=== PATIENT | female | born 1955 | race African-American/Black ===

== ENCOUNTER 2016-11-27 18:49 | Inpatient (IN) | payer OTHER ==
--- NOTE | 2016-11-27 19:13 | PDOC ---
History of Present Illness - General History Source: Patient Exam Limitations: Other - History of Present Illness Initial Comments: 11/27/16 20:05 The patient is a 61 year old female, with a significant past medical history of CVA(left-sided), asthma, cervical cancer, colon cancer(colostomy secondary to perforated viscus. no colostomy bag for 2 days), sigmoid volvulus, hypertension , hyperlipidemia, hepatitis C, bipolar disorder, depression, and seizures, who presents to the emergency department complaining of difficulty moving her left extremities for 3 days. The patient reports she has not been feeling herself since the onset of her symptoms. She states her memory has decreased over the past 3 days and her left side has been feeling a little off. The patient patient was unable to answer additional questions. The patients history is limited due to current clinical condition. Allergies: haloperidol, haloperidol lactate, penicillins(rash), fish derived( rash) Past Surgical History: Colostomy Social History: Current smoker(5 cigarettes per day). Cocaine and heroine use. Denies alcohol use. PCP: Dr. Hall <Gisele Rain - Last Filed: 11/28/16 00:56> - General History Source: Patient <Micky Argueta - Last Filed: 11/28/16 04:06> - General Stated Complaint: AMS Time Seen by Provider: 11/27/16 19:11 Past History <Gisele Rain - Last Filed: 11/28/16 00:56> - Past Medical History Asthma: Yes Cancer: Yes (h/o cervical cancer? reports tx with cone bx; h/o colon cancer - colostomy) CVA: Yes Diabetes: Yes GI Disorders: Yes (Sigmoid Volvulus, colostomy secondary to perforated viscus) Disorders: Yes HTN: Yes Hypercholesterolemia: Yes Liver Disease: Yes (HEP C) Psychiatric Problems: Yes (Diagnosed with Bipolar and depression in past.) Seizures: Yes - Surgical History Abdominal Surgery: Yes (COLOSTOMY) - Immunization History Immunization Up to Date: Yes - Psycho/Social/Smoking Cessation Hx Anxiety: No Suicidal Ideation: No Smoking Status: Yes Smoking History: Current some day smoker Have you smoked in the past 12 months: Yes Number of Cigarettes Smoked Daily: 5 Cigars Per Day: 0 'Breaking Loose' booklet given: 11/10/16 Hx Alcohol Use: No Drug/Substance Use Hx: Yes Substance Use Type: Cocaine, Heroin Hx Substance Use Treatment: Yes ((+) multiple rehabs, including a TC, in past) <Micky Argueta - Last Filed: 11/28/16 04:06> - Past Medical History Allergies/Adverse Reactions: Allergies Allergy/AdvReac Type Severity Reaction Status Date / Time haloperidol [From Haldol] Allergy Mild Verified 11/27/16 19:19 haloperidol lactate Allergy Mild Verified 11/27/16 19:19 [From Haldol] Penicillins Allergy Mild Rash Verified 11/27/16 19:19 fish derived Allergy Unknown Rash Verified 11/27/16 19:19 Home Medications: Ambulatory Orders Cyanocobalamin [Vitamin B12 -] 1,000 mcg PO DAILY 07/10/16 Cyclobenzaprine HCl [Flexeril -] 10 mg PO BID 07/10/16 Latanoprost 0.005% Eye Drops [Xalatan 0.005% Eye Drops -] 1 drop HS 07/10/16 Cholecalciferol (Vitamin D3) [Vitamin D3 -] 1,000 unit PO DAILY #30 tab Multivitamin [Poly-Vitamin] 1 each PO DAILY #30 tab.chew 08/07/16 Emtricitabine/Tenofov Alafenam [Descovy 200-25 mg Tablet] 1 each PO DAILY #30 tablet 08/14/16 Raltegravir [Isentress] 400 mg PO BID #60 tab 08/14/16 Chlorthalidone [Hygroton -] 25 mg PO DAILY #30 tablet 10/16/16 Hydralazine HCl [Apresoline -] 50 mg PO BID 10/16/16 Loratadine [Claritin -] 10 mg PO DAILY PRN #30 tablet 10/16/16 Pravastatin Sodium 10 mg PO HS 10/16/16 Sodium Chloride [Saline Nasal [place]] 1 - 2 sprays NS PRN #1 spray 10/16/16 Calcium Carbonate/Vitamin D3 [Calcium 500-Vit D3 200 Tablet] 1 each PO BID #60 tablet 10/23/16 Carbamazepine [Tegretol -] 200 mg PO BID #60 tablet 10/23/16 Vitamin B Complex 1 each PO DAILY #30 tablet 10/23/16 Clindamycin [Cleocin -] 300 mg PO TID #21 capsule 11/11/16 Quetiapine Fumarate [Seroquel -] 25 mg PO TID PRN #90 tablet 11/20/16 Valsartan [Diovan] 160 mg PO BID #60 tablet 11/20/16 Unobtainable 11/28/16 Review of Systems - Review of Systems Able to Perform ROS?: No Comments:: 11/27/16 20:05 Patient's history is limited due to current clinical condition. <Gisele Rain - Last Filed: 11/28/16 00:56> *Physical Exam - Vital Signs Last Vital Signs Temp Pulse Resp BP Pulse Ox 97.5 F L 106 H 20 157/118 97 11/27/16 19:16 11/27/16 19:16 11/27/16 19:16 11/27/16 19:16 11/27/16 19:16 - Physical Exam Comments: 11/27/16 20:13 GENERAL: Well developed, well nourished. Awake and alert. No acute distress. HEENT: Normocephalic, atraumatic. PERRLA, EOMI. No conjunctival pallor. Sclera are non- icteric. Moist mucous membranes. Oropharynx is clear. NECK: Supple. Full ROM. No JVD. Carotid pulses 2+ and symmetric, without bruits. No thyromegaly. No lymphadenopathy. CARDIOVASCULAR: Regular rate and rhythm. No murmurs, rubs, or gallops. Distal pulses are 2+ and symmetric. PULMONARY: No evidence of respiratory distress. Lungs clear to auscultation bilaterally. No wheezing, rales or rhonchi. ABDOMINAL: Soft. Non-tender. Non-distended. No rebound or guarding. No organomegaly. Normoactive bowel sounds. MUSCULOSKELETAL Normal range of motion at all joints. No bony deformities or tenderness. No CVA tenderness. EXTREMITIES: No cyanosis. No clubbing. No edema. No calf tenderness. SKIN: Warm and dry. Normal capillary refill. No rashes. No jaundice. NEUROLOGICAL: Alert, awake, appropriate. Cranial nerves 2-12 intact. No deficits to light touch and temperature in face, upper extremities and lower extremities. No motor deficits in the in face, upper extremities and lower extremities. Normoreflexic in the upper and lower extremities. Normal speech. Toes are down- going bilaterally. Gait is normal without ataxia. Bilateral motor strength 5/5. PSYCHIATRIC: Cooperative. Good eye contact. Appropriate mood and affect. <Gisele Rain - Last Filed: 11/28/16 00:56> Heart Score/ECG Review - ECG Impressions Comment:: 11/28/16 00:49 Vent. Rate: 57 bpm IMPRESSION: Sinus bradycardia. ST & T wave abnormality, consider lateral ischemia. <Gisele Rain - Last Filed: 11/28/16 00:56> ED Treatment Course - LABORATORY CBC & Chemistry Diagram: 11/27/16 23:20 11/27/16 23:20 - RADIOLOGY Radiograph Interpretation: 11/28/16 00:56 EXAM: CXR INTERPRETED BY: Dr. Shen REVIEWED BY: Dr. Argueta IMPRESSION: No significant interval change or acute lung disease is present. EXAM: Head CT INTERPRETED BY: Dr. Shen REVIEWED BY: Dr. Argueta IMPRESSION: Interval focal lucency in the right cerebellum as well as likely at the right parietal occipital junction suggestive of infarcts, of indeterminate age. Correlate clinically, MRI of the brain or a follow-up CT scan is needed for further evaluation. <Gisele Rain - Last Filed: 11/28/16 00:56> - LABORATORY CBC & Chemistry Diagram: 11/27/16 23:20 11/27/16 23:20 <Micky Argueta - Last Filed: 11/28/16 04:06> Medical Decision Making - Medical Decision Making 11/28/16 04:06 Dr. Argueta: The scribe's documentation has been prepared under my direction and personally reviewed by me in its entirery. I confirm that the note above accurately reflects all work, treatment, procedures, and medical decision making performed by me. <Micky Argueta - Last Filed: 11/28/16 04:06> *DC/Admit/Observation/Transfer - Attestations Scribe Attestion: 11/27/16 20:13 Documentation prepared by Gisele Rain, acting as medical technologist microbiology for Micky Argueta DO. <Gisele Rain - Last Filed: 11/28/16 00:56> - Discharge Dispostion Admit: Yes <Micky Argueta - Last Filed: 11/28/16 04:06> Diagnosis at time of Disposition: Altered awareness, transient, General weakness, Failure to thrive in adult - Referrals
--- NOTE | 2016-11-27 19:57 | PDOC ---
History of Present Illness - General Chief Complaint: CVA/TIA Stated Complaint: AMS Time Seen by Provider: 11/27/16 19:11 History Source: Patient tPA Exclusion checklist 3-4.5h - Time Elapsed Date last known well: 11/24/16 Time last known well: 01:00 Elaspsed time: 4 Day(s) and 3 Hour(s) and 7 Minutes - Thrombolytic Therapy Candidate Is patient eligible for thrombolytic therapy: No - Exclusion Criteria 3-4.5 hr SBP greater than 185 or DBP greater than 110mmHg despite tx: No Recent IC/spinal surgery,head trauma or stroke<3mos.: No Hx IC hemorrhage, IC neoplasm, AV malformation or aneurysm: No Active internal bleeding: No Blding diathesis(low plt ct, inc PTT,INR>1.7 or use of NOAC): No CT demonstrates multilobar infarct(>1/3 cerebral hemiphere): No Arterial puncture at noncompressible site in previous 7 days: No Blood glucose concentration less than 50mg/dL (2.7mmol/L): No - Relative Exclusion Criteria 3-4.5 hr Life expectancy <1 yr or severe co-morbid illness: No : No Patient/family refused: No Rapid improvement: No Stroke severity too mild: No Recent acute MT (w/in previous 3 months): No Seizure at onset with postictal residual neuro impairments: No Major surgery or serious trauma w/in previous 14 days: No Recent GI or hemorrhage (w/in previous 21 days): No - Add'l Relative Exclusion 3-4.5 hr Age > 80: No Hx of both diabetes AND prior ischemic stroke: No Taking an oral anticoagulant regardless of INR: No NIHSS >25: No - Ineligibility reason(s) Reasons No tPA given: Outside of window - delayed arrival NIH Stroke Scale - Last Known Well Date/Time & Onset Date Last Known Well: 11/24/16 Time Last Known Well: 19:54 - Initial Evaluation Level of consciousness: Alert Ask patient the month and their age: Answers both correctly Ask patient to open & close eyes; make fist and let go: Obeys both correctly Best gaze (horizontal eye movement): Normal Visual field testing: No visual field loss Facial paresis (Show teeth/raise eyebrows/close eyes tight): Normal symmetrical movement Motor Function: Left Arm: Normal Motor Function: Right Arm: Normal (extends arm 90 (or 45) degrees for 10 seconds without drift Motor Function: Left Leg: Drift Motor Function: Right Leg: Normal (extends leg 30 degrees for 5 seconds without drift) Limb Ataxia: Present in one limb Sensory(Use pinprick test arms,legs,trunk,face/side to side): Normal Best language (Describe picture, name items, read sentences): No Aphasia Dysarthria (read several words): Mild to moderate slurring of words Extinction and Inattention: No abnormality - Total Score NIH Stroke Scale Score: 3 Past History - Past Medical History Allergies/Adverse Reactions: Allergies Allergy/AdvReac Type Severity Reaction Status Date / Time haloperidol [From Haldol] Allergy Mild Verified 11/27/16 19:19 haloperidol lactate Allergy Mild Verified 11/27/16 19:19 [From Haldol] Penicillins Allergy Mild Rash Verified 11/27/16 19:19 fish derived Allergy Unknown Rash Verified 11/27/16 19:19 Home Medications: Ambulatory Orders Cyanocobalamin [Vitamin B12 -] 1,000 mcg PO DAILY 07/10/16 Cyclobenzaprine HCl [Flexeril -] 10 mg PO BID 07/10/16 Latanoprost 0.005% Eye Drops [Xalatan 0.005% Eye Drops -] 1 drop HS 07/10/16 Cholecalciferol (Vitamin D3) [Vitamin D3 -] 1,000 unit PO DAILY #30 tab Multivitamin [Poly-Vitamin] 1 each PO DAILY #30 tab.chew 08/07/16 Emtricitabine/Tenofov Alafenam [Descovy 200-25 mg Tablet] 1 each PO DAILY #30 tablet 08/14/16 Raltegravir [Isentress] 400 mg PO BID #60 tab 08/14/16 Chlorthalidone [Hygroton -] 25 mg PO DAILY #30 tablet 10/16/16 Hydralazine HCl [Apresoline -] 50 mg PO BID 10/16/16 Loratadine [Claritin -] 10 mg PO DAILY PRN #30 tablet 10/16/16 Pravastatin Sodium 10 mg PO HS 10/16/16 Sodium Chloride [Saline Nasal [place]] 1 - 2 sprays NS PRN #1 spray 10/16/16 Calcium Carbonate/Vitamin D3 [Calcium 500-Vit D3 200 Tablet] 1 each PO BID #60 tablet 10/23/16 Carbamazepine [Tegretol -] 200 mg PO BID #60 tablet 10/23/16 Vitamin B Complex 1 each PO DAILY #30 tablet 10/23/16 Clindamycin [Cleocin -] 300 mg PO TID #21 capsule 11/11/16 Quetiapine Fumarate [Seroquel -] 25 mg PO TID PRN #90 tablet 11/20/16 Valsartan [Diovan] 160 mg PO BID #60 tablet 11/20/16 Unobtainable 11/28/16 Asthma: Yes Cancer: Yes (h/o cervical cancer? reports tx with cone bx; h/o colon cancer - colostomy) CVA: Yes Diabetes: Yes GI Disorders: Yes (Sigmoid Volvulus, colostomy secondary to perforated viscus) Disorders: Yes HTN: Yes Hypercholesterolemia: Yes Liver Disease: Yes (HEP C) Psychiatric Problems: Yes (Diagnosed with Bipolar and depression in past.) Seizures: Yes - Surgical History Abdominal Surgery: Yes (COLOSTOMY) - Immunization History Immunization Up to Date: Yes - Psycho/Social/Smoking Cessation Hx Anxiety: No Suicidal Ideation: No Smoking Status: Yes Smoking History: Current some day smoker Have you smoked in the past 12 months: Yes Number of Cigarettes Smoked Daily: 5 Cigars Per Day: 0 Information on smoking cessation initiated: No 'Breaking Loose' booklet given: 11/10/16 Hx Alcohol Use: No Drug/Substance Use Hx: Yes Substance Use Type: Cocaine, Heroin Hx Substance Use Treatment: Yes ((+) multiple rehabs, including a TC, in past) *Physical Exam - Vital Signs Last Vital Signs Temp Pulse Resp BP Pulse Ox 97.5 F L 106 H 20 157/118 97 11/27/16 19:16 11/27/16 19:16 11/27/16 19:16 11/27/16 19:16 11/27/16 19:16 ED Treatment Course - LABORATORY CBC & Chemistry Diagram: 11/27/16 23:20 11/27/16 23:20 *DC/Admit/Observation/Transfer Diagnosis at time of Disposition: Altered awareness, transient, General weakness, Failure to thrive in adult - Discharge Dispostion Condition at time of disposition: Stable Admit: Yes - Referrals - Patient Instructions - Post Discharge Activity
[2016-11-27 23:30] LABS: MCHC 34.3 g/dl (32.0-36.0); MEAN CELL VOLUME 96.1 fl (80-96); PLATELET COUNT 335 K/MM3 (134-434); RDW 13.2 % (11.6-15.6)
[2016-11-27 23:44] LABS: INR 1.04 (0.82-1.09); PROTHROMBIN TIME (PATIENT) 11.4 SEC (9.98-11.88)
[2016-11-27 23:54] LABS: ALBUMIN 3.3 g/dl (3.4-5.0); ANION GAP 8 (8-16); BILIRUBIN,TOTAL 0.3 mg/dL (0.2-1.0); CALCIUM 9.4 mg/dL (8.5-10.1); CO2 28 mmol/L (21-32); CREATININE 0.9 mg/dL (0.55-1.02); GLUCOSE,RANDOM 88 mg/dL (74-106); MAGNESIUM 2.2 mg/dL (1.8-2.4); SGOT/AST 32 U/L (15-37); SGPT/ALT 25 U/L (12-78); TOT PROT 7.3 g/dl (6.4-8.2)
[2016-11-27 23:55] LABS: ALK PHOS 50 U/L (45-117)
[2016-11-27 23:59] LABS: TROPONIN I < 0.02 ng/ml (0.00-0.05)
--- NOTE | 2016-11-28 02:49 | MSN ---
Admitting History and Physical - Primary Care Physician PCP: Dr. Hall - Admission Chief Complaint: Altered mental status, Weakness x3 days History of Present Illness: Pt is a 61 yo F with a PMHx of HIV, colon CA, cervical CA, sigmoid volvulus s/p colostomy 2/2 perforated viscus, CVA, seizure disorder, HTN, HLD, DM, and bipolar disorder, who was BIBA from [facility] with altered mental status and generalized weakness for 3 days. She says she has not felt herself the past couple days. She reports difficulty moving her L sided extremities. Denies fevers, chills, CP, SOB, nausea, vomiting, abdominal pain, or change in vision. Admits to weakness and inability to void. Pt was straight cathed in order to obtain a urine sample. 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) Psych: Yes: Bipolar Endocrine: Yes: Diabetes Mellitus - Past Surgical History Past Surgical History: Yes: Colostomy Additional Past Surgical History: Cone Bx - Smoking History Smoking history: Former smoker Have you smoked in the past 12 months: Yes Aproximately how many cigarettes per day: 10 - Alcohol/Substance Use Hx Alcohol Use: No History of Substance Use: reports: Cocaine, Heroin (IVDU) - Social History Usual Living Arrangement: Yes: Assisted Living ADL: Support Services Home Medications - Allergies Allergies/Adverse Reactions: Allergies Allergy/AdvReac Type Severity Reaction Status Date / Time haloperidol [From Haldol] Allergy Mild Verified 11/27/16 19:19 haloperidol lactate Allergy Mild Verified 11/27/16 19:19 [From Haldol] Penicillins Allergy Mild Rash Verified 11/27/16 19:19 fish derived Allergy Unknown Rash Verified 11/27/16 19:19 - Home Medications Home Medications: Ambulatory Orders Cyanocobalamin [Vitamin B12 -] 1,000 mcg PO DAILY 07/10/16 Cyclobenzaprine HCl [Flexeril -] 10 mg PO BID 07/10/16 Latanoprost 0.005% Eye Drops [Xalatan 0.005% Eye Drops -] 1 drop HS 07/10/16 Cholecalciferol (Vitamin D3) [Vitamin D3 -] 1,000 unit PO DAILY #30 tab Multivitamin [Poly-Vitamin] 1 each PO DAILY #30 tab.chew 08/07/16 Emtricitabine/Tenofov Alafenam [Descovy 200-25 mg Tablet] 1 each PO DAILY #30 tablet 08/14/16 Raltegravir [Isentress] 400 mg PO BID #60 tab 08/14/16 Chlorthalidone [Hygroton -] 25 mg PO DAILY #30 tablet 10/16/16 Hydralazine HCl [Apresoline -] 50 mg PO BID 10/16/16 Loratadine [Claritin -] 10 mg PO DAILY PRN #30 tablet 10/16/16 Pravastatin Sodium 10 mg PO HS 10/16/16 Sodium Chloride [Saline Nasal [place]] 1 - 2 sprays NS PRN #1 spray 10/16/16 Calcium Carbonate/Vitamin D3 [Calcium 500-Vit D3 200 Tablet] 1 each PO BID #60 tablet 10/23/16 Carbamazepine [Tegretol -] 200 mg PO BID #60 tablet 10/23/16 Vitamin B Complex 1 each PO DAILY #30 tablet 10/23/16 Clindamycin [Cleocin -] 300 mg PO TID #21 capsule 11/11/16 Quetiapine Fumarate [Seroquel -] 25 mg PO TID PRN #90 tablet 11/20/16 Valsartan [Diovan] 160 mg PO BID #60 tablet 11/20/16 Unobtainable 11/28/16 Family Disease History - Family Disease History Family History: Unremarkable Review of Systems - Review of Systems Constitutional: reports: Weakness. denies: Chills, Fever Eyes: reports: No Symptoms Neck: reports: No Symptoms Cardiovascular: reports: No Symptoms Respiratory: reports: No Symptoms Gastrointestinal: reports: No Symptoms Genitourinary: reports: Incontinence (Unable to void) Breasts: reports: No Symptoms Reported Musculoskeletal: reports: Muscle Weakness Integumentary: reports: Lesions (Desquamation and onychomycosis of L big toe) Neurological: reports: Change in LOC Endocrine: reports: No Symptoms Hematology/Lymphatic: reports: No Symptoms Psychiatric: reports: No Symptoms Physical Examination Vital Signs: Vital Signs Temperature 97.5 F L 11/27/16 19:16 Pulse Rate 106 H 11/27/16 19:16 Respiratory Rate 20 11/27/16 19:16 Blood Pressure 157/118 11/27/16 19:16 O2 Sat by Pulse Oximetry (%) 97 11/27/16 19:16 Constitutional: Yes: No Distress, Calm, Thin Eyes: Yes: WNL, Conjunctiva Clear, EOM Intact, PERRL. No: Sclera Icterus HENT: Yes: WNL, Atraumatic, Normocephalic, Other (No top teeth, few bottom teeth ). No: Thrush, Tonsillar Exudate Neck: Yes: WNL, Supple, Trachea Midline. No: Lymphadenopathy Cardiovascular: Yes: WNL, Regular Rate and Rhythm, S1, S2. No: JVD, Murmur Respiratory: Yes: WNL, Regular, CTA Bilaterally, Diminished. No: Accessory Muscle Use, Rales, Rhonchi, SOB, Tachypnea, Wheezes Gastrointestinal: Yes: Normal Bowel Sounds, Tenderness, Other (Colostomy bag L side of abdomen present, no erythema/drainage around site, no output in bag). No: Hernia, Palpable Mass, Pulsatile Mass, Vomiting Renal/: Yes: Anuria, Incontinence (Unable to void) Musculoskeletal: Yes: Muscle Weakness Extremities: Yes: Other (IV in L foot) Edema: No Integumentary: Yes: WNL Wound/Incision: Yes: Clean/Dry (Colostomy site) Neurological: Yes: Alert, Oriented, Cran Nerves II-XII Intact, Lethargy, Weakness, Other (Mild dysarthria) ...Motor Strength: WNL Psychiatric: Yes: WNL, Alert, Oriented Labs: Laboratory Results - last 24 hr 11/27/16 11/27/16 11/27/16 23:20 23:20 23:20 WBC 6.0 RBC 4.14 Hgb 13.7 Hct 39.8 MCV 96.1 H MCHC 34.3 RDW 13.2 Plt Count 335 D MPV 7.0 L Neutrophils % 17.0 L D Lymphocytes % 72.0 H D Monocytes % 6.0 Eosinophils % 2.0 Basophils % 2.0 Band Neutrophils 1.0 D INR 1.04 Sodium 143 Potassium 3.8 Chloride 107 Carbon Dioxide 28 Anion Gap 8 BUN 24 H D Creatinine 0.9 Creat Clearance w eGFR > 60 Random Glucose 88 Calcium 9.4 Magnesium 2.2 Total Bilirubin 0.3 AST 32 ALT 25 Alkaline Phosphatase 50 Creatine Kinase Troponin I Total Protein 7.3 Albumin 3.3 L Urine Color Urine Appearance Urine pH Ur Specific [place] Urine Protein Urine Glucose (UA) Urine Ketones Urine Blood Urine Nitrite Urine Bilirubin Urine Urobilinogen Ur Leukocyte Esterase Opiates Screen Methadone Screen Barbiturate Screen Phencyclidine Screen Ur Amphetamines Screen MDMA (Ecstasy) Screen Benzodiazepines Screen Cocaine Screen U Marijuana (THC) Screen 11/27/16 11/28/16 11/28/16 23:20 02:40 02:40 WBC RBC Hgb Hct MCV MCHC RDW Plt Count MPV Neutrophils % Lymphocytes % Monocytes % Eosinophils % Basophils % Band Neutrophils INR Sodium Potassium Chloride Carbon Dioxide Anion Gap BUN Creatinine Creat Clearance w eGFR Random Glucose Calcium Magnesium Total Bilirubin AST ALT Alkaline Phosphatase Creatine Kinase 106 Troponin I < 0.02 Total Protein Albumin Urine Color Yellow Urine Appearance Clear Urine pH 7.0 Ur Specific [place] 1.025 Urine Protein Negative Urine Glucose (UA) Negative Urine Ketones Negative Urine Blood Negative Urine Nitrite Negative Urine Bilirubin Negative Urine Urobilinogen Negative Ur Leukocyte Esterase Negative Opiates Screen Negative Methadone Screen Negative Barbiturate Screen Negative Phencyclidine Screen Negative Ur Amphetamines Screen Negative MDMA (Ecstasy) Screen Negative Benzodiazepines Screen Negative Cocaine Screen Negative U Marijuana (THC) Screen Negative Imaging - Results Chest X-ray: Report Reviewed, Image Reviewed (No acute pathology) Cat Scan: Report Reviewed, Image Reviewed (CT Head: focal lucency of R cerebellum and R parietal/occipital jxn representing age indeterminate infarcts) EKG: Report Reviewed (Sinus bradycardia @57bpm with ST/T wave abnormalities, possible lateral ischemia), Image Reviewed Problem List - Problems (1) Altered awareness, transient (2) Failure to thrive in adult (3) General weakness (4) DVT prophylaxis (5) Asymptomatic HIV infection (6) Colostomy in place (7) Essential hypertension (8) DM w/o complication type II (9) Seizure disorder Assessment/Plan Pt is a 61 yo F with an extensive PMHx presenting to the ED from an assisted living facility with altered mental status and generalized weakness for 3 days. Pt is being admitted to med-surg for further observation and management. 1. Altered mental status with generalized weakness -CT head: notable for focal lucency in R cerebellum and R parietal lobe, age indeterminate infarct, no acute pathology -CXR: no acute pathology -EKG: Sinus bradycardia with ST segment/T wave abnormalities -Troponins negative x1 -UA -Urine toxicology screen -Physical therapy consult 2. HIV -Continue HAART -Raltegravir 400mg PO BID -Emtricitabine/Tenofov Alafenam 200/25mg PO daily -CD4 count -Viral load 3. HTN -Valsartan 160mg PO BID -Hydralazine 50mg PO BID -Chlorthalidone 25mg PO daily 4. DM -BGM 5. HLD -Pravastatin 10mg PO HS 6. Seizure disorder -Carbamazepine 200mg PO BID 7. FEN -Start NS @75mls/hr -CMP in AM with Mg, Phos -Continue home vitamins -PO diet -Dietary consult -Speech pathology consult 8. DVT ppx -SCDs -Heparin 5000U SQ BID 9. Dispo -Admit to med-surg -Endorse to Dr. Lucho Pacheco, MS3
[2016-11-28] MEDS: SODIUM CHLORIDE 1,000 ML IV SCH (02:50)
[2016-11-28] MEDS ORDERED: QUEtiapine FUMARATE 25 MG TABLET (FP) PO PRN (02:54)
[2016-11-28] MEDS ORDERED: LORATADINE 10 MG TABLET PO PRN (02:54)
[2016-11-28 02:56] LABS: URINE APPEARANCE CLEAR; URINE BILIRUBIN NEGATIVE (NEGATIVE); URINE BLOOD NEGATIVE (NEGATIVE); URINE COLOR YELLOW; URINE GLUCOSE (UA) NEGATIVE (NEGATIVE); URINE KETONE NEGATIVE (NEGATIVE); URINE LEUK ESTERASE NEGATIVE (NEGATIVE); URINE NITRITE NEGATIVE (NEGATIVE); URINE PROTEIN NEGATIVE (NEGATIVE); URINE UROBILINOGEN NEGATIVE E.U./dl (0.2-1.0)
[2016-11-28 02:58] LABS: URINE MARIJUANA THC NEGATIVE ng/ml (CUTOFF=50)
--- NOTE | 2016-11-28 03:47 | HP ---
<Lyssa Jacob - Last Filed: 11/28/16 04:33> CHIEF COMPLAINT: Weakness PCP: Dr. Hall HISTORY OF PRESENT ILLNESS: The patient is a 61 yo F with PMHx of CVA with L sided residual weakness and seizures who presents to the ED from [facility] complaining of weakness to her L side for the past 3 days. The patient states she hasn't felt like herself and reports her memory and ability to move her L extremities has decreased over the past 3 days. The patient was sent in for further evaluation of AMS. She denies chest pain, headache or dizziness. She denies fever, chills, nausea, vomit, diarrhea or constipation. She denies dysuria, frequency, urgency or hematuria. PMHx: asthma, cervical cancer, colon cancer(colostomy secondary to perforated viscus. no colostomy bag for 2 days), sigmoid volvulus, hypertension, hyperlipidemia, hepatitis C, bipolar disorder, depression, and seizures, HIV ( last T4 count is 593) Recent Travel: None reported PAST MEDICAL HISTORY: See above PAST SURGICAL HISTORY:. Colostomy Social History: Smoking: Reports 5 cigg/daily Alcohol: Non reported Drugs: IV drug user (heroin and cocaine) Family History: Noncontributory Allergies haloperidol [From Haldol] Allergy (Mild, Verified 11/27/16 19:19) as per pt "ask my nurse" haloperidol lactate [From Haldol] Allergy (Mild, Verified 11/27/16 19:19) as per pt "ask my nurse" Penicillins Allergy (Mild, Verified 11/27/16 19:19) Rash fish derived Allergy (Unknown, Verified 11/27/16 19:19) Rash HOME MEDICATIONS: Home Medications Medication Instructions Recorded Cyanocobalamin [Vitamin B12 -] 1,000 mcg PO DAILY 07/10/16 Cyclobenzaprine HCl [Flexeril -] 10 mg PO BID 07/10/16 Latanoprost 0.005% Eye Drops 1 drop HS 07/10/16 [Xalatan 0.005% Eye Drops -] Cholecalciferol (Vitamin D3) 1,000 unit PO DAILY #30 tab 08/07/16 [Vitamin D3 -] Multivitamin [Poly-Vitamin] 1 each PO DAILY #30 tab.chew 08/07/16 Emtricitabine/Tenofov Alafenam 1 each PO DAILY #30 tablet 08/14/16 [Descovy 200-25 mg Tablet] Raltegravir [Isentress] 400 mg PO BID #60 tab 08/14/16 Chlorthalidone [Hygroton -] 25 mg PO DAILY #30 tablet 10/16/16 Hydralazine HCl [Apresoline -] 50 mg PO BID 10/16/16 Loratadine [Claritin -] 10 mg PO DAILY PRN #30 tablet 10/16/16 Pravastatin Sodium 10 mg PO HS 10/16/16 Sodium Chloride [Saline Nasal 1 - 2 sprays NS PRN #1 spray 10/16/16 [place]] Calcium Carbonate/Vitamin D3 1 each PO BID #60 tablet 10/23/16 [Calcium 500-Vit D3 200 Tablet] Carbamazepine [Tegretol -] 200 mg PO BID #60 tablet 10/23/16 Vitamin B Complex 1 each PO DAILY #30 tablet 10/23/16 Clindamycin [Cleocin -] 300 mg PO TID #21 capsule 11/11/16 Quetiapine Fumarate [Seroquel -] 25 mg PO TID PRN #90 tablet 11/20/16 Valsartan [Diovan] 160 mg PO BID #60 tablet 11/20/16 Unobtainable 11/28/16 REVIEW OF SYSTEMS CONSTITUTIONAL: Absent: fever, chills, diaphoresis, generalized weakness, malaise, loss of appetite, weight change HEENT: Absent: rhinorrhea, nasal congestion, throat pain, throat swelling, difficulty swallowing, mouth swelling, ear pain, eye pain, visual changes CARDIOVASCULAR: Absent: chest pain, syncope, palpitations, irregular heart rate, lightheadedness , peripheral edema RESPIRATORY: Absent: cough, shortness of breath, dyspnea with exertion, orthopnea, wheezing, stridor, hemoptysis GASTROINTESTINAL: Absent: abdominal pain, abdominal distension, nausea, vomiting, diarrhea, constipation, melena, hematochezia GENITOURINARY: Absent: dysuria, frequency, urgency, hesitancy, hematuria, flank pain, genital pain MUSCULOSKELETAL: + muscle weakness. Absent: myalgia, arthralgia, joint swelling, back pain, neck pain SKIN: Absent: rash, itching, pallor HEMATOLOGIC/IMMUNOLOGIC: Absent: easy bleeding, easy bruising, lymphadenopathy, frequent infections ENDOCRINE: Absent: unexplained weight gain, unexplained weight loss, heat intolerance, cold intolerance NEUROLOGIC: + weakness. Absent: headache, focal weakness or paresthesias, dizziness, unsteady gait, seizure, mental status changes, bladder or bowel incontinence PSYCHIATRIC: Absent: anxiety, depression, suicidal or homicidal ideation, hallucinations. PHYSICAL EXAMINATION Vital Signs - 24 hr 11/28/16 03:26 Pulse Rate [ 68 Left Radial] Respiratory 19 Rate Blood Pressure 146/93 [Right Arm] O2 Sat by Pulse 98 Oximetry (%) GENERAL: Awake, alert, and fully oriented, in no acute distress. HEAD: Normal with no signs of trauma. EYES: Pupils equal, round and reactive to light, extraocular movements intact, sclera anicteric, conjunctiva clear. No lid lag. EARS, NOSE, THROAT: Ears normal, nares patent, oropharynx clear without exudates. Moist mucous membranes. NECK: Normal range of motion, supple without lymphadenopathy, JVD, or masses. LUNGS: + Diminished breath sounds at the basis. Clear to auscultation bilaterally. No wheezes, and no crackles. No accessory muscle use. HEART: Regular rate and rhythm, normal S1 and S2 without murmur, rub or gallop. ABDOMEN: + Abdomen tender to palpation. + Midline scar and rigid abdomen with normoactive bowel sounds, no guarding, no rebound, no masses. No hepatomegaly or splenomegaly. MUSCULOSKELETAL: Normal range of motion at all joints. No bony deformities or tenderness. No CVA tenderness. UPPER EXTREMITIES: 2+ pulses, warm, well-perfused. No cyanosis. No clubbing. Cap refill <2 seconds. No peripheral edema. LOWER EXTREMITIES: + L foot with IV. + RLE 1st digit skin desquamation and necrosis. 2+ pulses, warm, well-perfused. No calf tenderness. No peripheral edema. NEUROLOGICAL: Cranial nerves II-XII intact. Normal speech. Gait deferred. PSYCHIATRIC: Cooperative. Good eye contact. Appropriate mood and affect. SKIN: Warm, dry, normal turgor, no rashes or lesions noted. Laboratory Results - last 24 hr 11/28/16 11/28/16 02:40 02:40 Urine Color Yellow Urine Appearance Clear Urine pH 7.0 Ur Specific [place] 1.025 Urine Protein Negative Urine Glucose (UA) Negative Urine Ketones Negative Urine Blood Negative Urine Nitrite Negative Urine Bilirubin Negative Urine Urobilinogen Negative Ur Leukocyte Esterase Negative Opiates Screen Negative Methadone Screen Negative Barbiturate Screen Negative Phencyclidine Screen Negative Ur Amphetamines Screen Negative MDMA (Ecstasy) Screen Negative Benzodiazepines Screen Negative Cocaine Screen Negative U Marijuana (THC) Screen Negative Imaging: EXAM: CXR INTERPRETED BY: Dr. Shen REVIEWED BY: Dr. Argueta IMPRESSION: No significant interval change or acute lung disease is present. EXAM: Head CT INTERPRETED BY: Dr. Shen REVIEWED BY: Dr. Argueta IMPRESSION: Interval focal lucency in the right cerebellum as well as likely at the right parietal occipital junction suggestive of infarcts, of indeterminate age. Correlate clinically, MRI of the brain or a follow-up CT scan is needed for further evaluation. EKG Vent. Rate: 57 bpm IMPRESSION: Sinus bradycardia. ST & T wave abnormality, consider lateral ischemia. ASSESSMENT/PLAN: The patient is a 61 yo F with a PMHx of CVA with L sided residual weakness and seizures who is being admitted for AMS. PLAN: 1.) AMS -UA -Urine toxicology -CT head -Nutrition consult -Continue HIV medications Documentation prepared by Lyssa Jacob, acting as medical transport specialist for Ann Sibley MD <Ann Sibley - Last Filed: 11/28/16 05:43> ASSESSMENT/PLAN: Patient re-admitted and to be endorsed to Dr Yepez for continued care Problem List - Problem (1) Altered awareness, transient Assessment/Plan: Patent currently alert and oriented to person, place and time and is a reliable historian. r/o electrolyte imbalances, infection, intoxication vs cva. possibly d/t dehydration, IVF NS @75cc/h UA and U toxicology Neurochecks q4h Continue home medications. Code(s): R40.4 - TRANSIENT ALTERATION OF AWARENESS (2) Failure to thrive in adult Assessment/Plan: Secondary to wasting syndrome Ensure TID Calorie counting Nutrition consult Code(s): R62.7 - ADULT FAILURE TO THRIVE (3) Colostomy in place Assessment/Plan: Empty and change as needed. Code(s): Z93.3 - COLOSTOMY STATUS (4) Essential hypertension Assessment/Plan: Continue home medications Code(s): I10 - ESSENTIAL (PRIMARY) HYPERTENSION (5) HIV disease Assessment/Plan: Continue home medications Raltegravir and Descovy Code(s): B20 - HUMAN IMMUNODEFICIENCY VIRUS [HIV] DISEASE (6) Seizure disorder Assessment/Plan: Stable last episode over one year ago, continue home medications. Code(s): G40.909 - EPILEPSY, UNSP, NOT INTRACTABLE, WITHOUT STATUS EPILEPTICUS (7) Hepatitis C Code(s): B19.20 - UNSPECIFIED VIRAL HEPATITIS C WITHOUT HEPATIC COMA Qualifiers: Hepatic coma status: without hepatic coma Qualified Code(s): - Visit type - Emergency Visit Emergency Visit: Yes ED Registration Date: 11/28/16 Care time: The patient presented to the Emergency Department on the above date and was hospitalized for further evaluation of their emergent condition. - New Patient This patient is new to me today: Yes Date on this admission: 11/28/16 - Critical Care Critical Care patient: No
[2016-11-28 05:31] VITALS: BMI 19.3
[2016-11-28] MEDS ORDERED: PATIENT'S OWN MEDICATION (NON-FORMULARY) (Emtricitabine/Tenofov Alafenam [Descovy 200-25 M PO SCH (10:00)
[2016-11-28] MEDS ORDERED: PT OWN MED DRAWER 7, Y5N ONE ×2 (10:14→21:56)
[2016-11-28] MEDS: CYANOCOBALAMIN 1,000 MCG TABLET (FP) PO SCH (10:18)
[2016-11-28] MEDS: CHOLECALCIFEROL (VITAMIN D3) 1,000 UNIT TABLET (FP) PO SCH (10:18)
[2016-11-28] MEDS: HEPARIN NA (PORCINE) 5,000 UNITS/ML 1ML VIAL SQ SCH ×2 (10:18→21:51)
[2016-11-28] MEDS: MULTIVITAMINS (DAILY MVI) TABLET (FP) PO SCH (10:19)
[2016-11-28] MEDS: VITAMIN B COMPLEX W/C COMBO TABLET (FP) PO SCH (10:19)
[2016-11-28] MEDS: CHLORTHALIDONE 25 MG TABLET PO SCH (10:19)
[2016-11-28] MEDS: carBAMazepine 200 MG TABLET PO SCH ×2 (10:19→21:57)
[2016-11-28] MEDS: VALSARTAN 160 MG TABLET (UD) PO SCH ×2 (10:19→21:51)
[2016-11-28] MEDS: CALCIUM 500MG/VIT-D 200 UNITS COMBO TABLET (FP) PO SCH ×2 (10:19→21:51)
[2016-11-28] MEDS: CYCLOBENZAPRINE HCL 10 MG TABLET (FP) PO SCH ×2 (10:19→21:51)
[2016-11-28] MEDS: hydrALAZINE HCL 50 MG TABLET (FP) PO SCH ×2 (10:19→21:51)
[2016-11-28] MEDS: RALTEGRAVIR POTASSIUM 400 MG TAB PO SCH ×2 (10:20→22:01)
--- NOTE | 2016-11-28 12:16 | CONSULT ---
Admitting History and Physical - Primary Care Physician PCP: Miguel Yepez - Admission History of Present Illness: Per EMR note: "HISTORY OF PRESENT ILLNESS: The patient is a 61 yo F with PMHx of CVA with L sided residual weakness and seizures who presents to the ED from [facility] complaining of weakness to her L side for the past 3 days. The patient states she hasn't felt like herself and reports her memory and ability to move her L extremities has decreased over the past 3 days. The patient was sent in for further evaluation of AMS. She denies chest pain, headache or dizziness. She denies fever, chills, nausea, vomit, diarrhea or constipation. She denies dysuria, frequency, urgency or hematuria. PMHx: asthma, cervical cancer, colon cancer(colostomy secondary to perforated viscus. no colostomy bag for 2 days), sigmoid volvulus, hypertension, hyperlipidemia, hepatitis C, bipolar disorder, depression, and seizures, HIV ( last T4 count is 593)" Pt reports thAT SHE HAS BEEN IN A W/C SINCE 2007. She doesn't "remember last week" and that her speech changed 2-4 days ago. UE's seem ataxic. 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: CVA (2008, L sided residual), Seizure Cardiovascular: Yes: HTN, Hyperlipdemia, Other (Endocarditis) Gastrointestinal: Yes: Cancer (Stage 3 colon CA), Other (Sigmoid volvulus s/p colostomy 2/2 perforated viscus) Hepatobiliary: Yes: Hepatitis C Infectious Disease: Yes: HIV (T cell 593) Psych: Yes: Bipolar Endocrine: Yes: Diabetes Mellitus - Past Surgical History Past Surgical History: Yes: Colostomy Additional Past Surgical History: Cone Bx - Smoking History Smoking history: Former smoker Have you smoked in the past 12 months: Yes Aproximately how many cigarettes per day: 10 - Alcohol/Substance Use Hx Alcohol Use: No History of Substance Use: reports: Cocaine, Heroin (IVDU) - Social History ADL: Support Services History - Admission Reason For Visit: AMS FAILURE TO THRIVE IN ADULT - Diagnostics X-ray: Report Reviewed CT Scan: Report Reviewed - General Mental Status: Alert and Oriented, Awake and Alert, Able to Follow Commands, Vague Attention: Distractible, Moderate Impairment Ability to Follow Directions: Fair - Hearing Hearing: Normal Speech Evaluation - Communication Primary Language: ARABIC Communication: Yes: Dysarthria Oral Expression Ability: Yes: Mild Impairment, Moderate Impairment - Speech Production Intelligibility: Yes: Mildly Impaired, Moderately Impaired - Speech Characteristics Voice Loudness: Moderately Soft/Quiet Voice Phonatory-based Quality: Yes: Hoarse, Dysphonia Speech Pattern: Impaired Speech Clarity: < 50% Nasal Resonance: Hypernasal Articulation: Yes: Imprecise Rate of Speech: Too Slow Voice, Other Observations: Yes: Progressively Weak Voice, Inadequate Breath Support - Language/Auditory Comprehension Follows: Yes: 1 Stage Simple Commands (needs repetition to facilitate response) Observation: Able to respond to yes/no queries: Yes, Comprehends Conversational Speech: Yes, Benefits from Repetiton: Yes - Language/Verbal Expression Able to Respond to Simple Queries: Yes: Mildly Impaired, Moderately Impaired Functional Communication Status: Yes: Mildly Impaired (slow to respond) - Swallow Evaluation/Bedside Assessment Current Nutritional Intake: Other ("supplements tid") Dentition: Yes: Edentulous (a couple of teeth), Missing Teeth Against Resistance Opening: Weak Against Resistance Closing: Weak Pucker Lips: Weak Smile: Weak Lingual Movement: Symmetric, Reduced Protrusion Lingual Speed of Movement: Reduced Lingual Movement Strgth Against Opposition: Reduced Laryngeal Movement: Reduced Excursion, Labored,delay initiation, Reduced Velocity Chewing: Impaired Timing of Swallow: Delayed Coughing/Throat Clear: Yes (thin liquid) Change in Voice: Yes Recommendations - Speech Evaluation, Impression/Plan Impression: 61 yo with multiple medical problems admitted with left sided weakness and altered speech x 2-4 days per pt. She does not recall events from the previous weak. Moderate dysarthria, dysphonia, dysphagia, impaired breath support for speech. Grossly oriented but quite distractible/slow to respond. - Dysphagia Impressions/Plan Swallowing Skills: Impaired Dysphagia Impressions: Ongoing Evaluation, Suspect Aspiration *Silent aspiration: cannot be R/O at bedside Recommendations: Neuro Consult, Modified Barium Swallow - Recommendations Diet Consistency: NPO
[2016-11-28] MEDS ORDERED: SODIUM CHLORIDE 1,000 ML IV SCH (12:30)
--- NOTE | 2016-11-28 14:25 | CONSULT ---
Consult Consult Specialty:: Neurology Reason for Consultation:: Left side weakness - History of Present Illness History of Present Illness: 61 year old woman with history of HIV, ischemic infarct with residual left sided weakness, epilepsy, colon ca, presented from [facility] with worsening left sided weakness for the last three days. Patient reports difficulty moving the left arm and leg, difficulty walking, memory loss and altered mental status. CT head shows right cerebellar and right parietal lucency of indeterminant age NIHSS 4 - left arm drift, can hold left leg against gravity unable to sustain - Past Medical History ARC AND GAS WELDER: Yes: CVA (2008, L sided residual), Seizure Cardio/Vascular: Yes: HTN, Hyperlipdemia, Other (Endocarditis) Gastrointestinal: Yes: Cancer (Stage 3 colon CA), Other (Sigmoid volvulus s/p colostomy 2/2 perforated viscus) Hepatobiliary: Yes: Hepatitis C Infectious Disease: Yes: HIV (T cell 593) Psych: Yes: Bipolar Endocrine: Yes: Diabetes Mellitus - Past Surgical History Past Surgical History: Yes: Colostomy - Alcohol/Substance Use Hx Alcohol Use: No History of Substance Use: reports: Cocaine, Heroin (IVDU) - Smoking History Smoking history: Former smoker Have you smoked in the past 12 months: Yes Aproximately how many cigarettes per day: 10 - Social History ADL: Support Services Home Medications - Allergies Allergies/Adverse Reactions: Allergies Allergy/AdvReac Type Severity Reaction Status Date / Time haloperidol [From Haldol] Allergy Mild Verified 11/27/16 19:19 haloperidol lactate Allergy Mild Verified 11/27/16 19:19 [From Haldol] Penicillins Allergy Mild Rash Verified 11/27/16 19:19 fish derived Allergy Unknown Rash Verified 11/27/16 19:19 - Home Medications Home Medications: Ambulatory Orders Cyanocobalamin [Vitamin B12 -] 1,000 mcg PO DAILY 07/10/16 Cyclobenzaprine HCl [Flexeril -] 10 mg PO BID 07/10/16 Latanoprost 0.005% Eye Drops [Xalatan 0.005% Eye Drops -] 1 drop HS 07/10/16 Cholecalciferol (Vitamin D3) [Vitamin D3 -] 1,000 unit PO DAILY #30 tab Multivitamin [Poly-Vitamin] 1 each PO DAILY #30 tab.chew 08/07/16 Emtricitabine/Tenofov Alafenam [Descovy 200-25 mg Tablet] 1 each PO DAILY #30 tablet 08/14/16 Raltegravir [Isentress] 400 mg PO BID #60 tab 08/14/16 Chlorthalidone [Hygroton -] 25 mg PO DAILY #30 tablet 10/16/16 Hydralazine HCl [Apresoline -] 50 mg PO BID 10/16/16 Loratadine [Claritin -] 10 mg PO DAILY PRN #30 tablet 10/16/16 Pravastatin Sodium 10 mg PO HS 10/16/16 Sodium Chloride [Saline Nasal [place]] 1 - 2 sprays NS PRN #1 spray 10/16/16 Calcium Carbonate/Vitamin D3 [Calcium 500-Vit D3 200 Tablet] 1 each PO BID #60 tablet 10/23/16 Carbamazepine [Tegretol -] 200 mg PO BID #60 tablet 10/23/16 Vitamin B Complex 1 each PO DAILY #30 tablet 10/23/16 Clindamycin [Cleocin -] 300 mg PO TID #21 capsule 11/11/16 Quetiapine Fumarate [Seroquel -] 25 mg PO TID PRN #90 tablet 11/20/16 Valsartan [Diovan] 160 mg PO BID #60 tablet 11/20/16 Unobtainable 11/28/16 Review of Systems - Review of Systems Constitutional: reports: No Symptoms Eyes: reports: No Symptoms HENT: reports: No Symptoms Cardiovascular: reports: No Symptoms Respiratory: reports: No Symptoms Neurological: reports: Unsteady Gait Physical Exam Vital Signs: Vital Signs Temperature 98.5 F 11/28/16 09:07 Pulse Rate 66 11/28/16 09:07 Respiratory Rate 20 11/28/16 09:07 Blood Pressure 132/96 11/28/16 09:07 O2 Sat by Pulse Oximetry (%) 100 11/28/16 09:00 Constitutional: Yes: No Distress Eyes: Yes: Conjunctiva Clear, EOM Intact HENT: Yes: Atraumatic, Normocephalic Cardiovascular: Yes: S1, S2 Respiratory: Yes: Regular (knows name, age, place) Neurological: Yes: Cran Nerves II-XII Intact ...Motor Strength: LUE, LLE (moderate left hemiparesis) Assessment/Plan 61 year old woman with history of HIV, ischemic infarct with residual left sided weakness, epilepsy, colon ca, presented from [facility] with worsening left sided weakness for the last three days. Patient reports difficulty moving the left arm and leg, difficulty walking, memory loss and altered mental status. CT head shows right cerebellar and right parietal lucency of indeterminant age NIHSS 4 - left arm drift, can hold left leg against gravity unable to sustain. Patient [id number] Right cerebellar infarct, indeterminate age MRI brain without contrast Aspirin 81 mg daily Continue statin Echocardiogram Carotid doppler PT/OT
--- NOTE | 2016-11-28 16:36 | EKG ---
Test Reason : Blood Pressure : / mmHG Vent. Rate : 057 BPM Atrial Rate : 057 BPM P-R Int : 156 ms QRS Dur : 092 ms QT Int : 418 ms P-R-T Axes : 040 016 127 degrees QTc Int : 406 ms POOR DATA QUALITY, INTERPRETATION MAY BE ADVERSELY AFFECTED SINUS BRADYCARDIA ABNORMAL ECG WHEN COMPARED WITH ECG OF 10-NOV-2016 17:26, NO SIGNIFICANT CHANGE WAS FOUND Confirmed by MD CONSUELO, ESTEFANI ([id number]) on 11/28/2016 4:36:35 PM Referred By: Confirmed By:ESTEFANI CORDERO MD
--- NOTE | 2016-11-28 18:57 | PN ---
Progress Note, Physician History of Present Illness: 61 year old woman with history of HIV, ischemic infarct with residual left sided weakness, epilepsy, colon ca, presented from [facility] with worsening left sided weakness for the last three days. Patient reports difficulty moving the left arm and leg, difficulty walking, memory loss and altered mental status. - Current Medication List Current Medications: Active Medications Aspirin (Asa -) 81 mg PO DAILY [facility] Atorvastatin Calcium (Lipitor -) 10 mg PO HS [facility] Calcium Carbonate/Cholecalciferol (Os-Bo 500+D -) 1 tab PO BID [facility] Last Admin: 11/28/16 10:19 Dose: 1 tab Carbamazepine (Tegretol -) 200 mg PO BID [facility] Last Admin: 11/28/16 10:19 Dose: 200 mg Chlorthalidone (Hygroton -) 25 mg PO DAILY [facility] Last Admin: 11/28/16 10:19 Dose: 25 mg Cholecalciferol (Vitamin D3 -) 1,000 unit PO DAILY [facility] Last Admin: 11/28/16 10:18 Dose: 1,000 unit Cyanocobalamin (Vitamin B12 -) 1,000 mcg PO DAILY [facility] Last Admin: 11/28/16 10:18 Dose: 1,000 mcg Cyclobenzaprine HCl (Flexeril -) 10 mg PO BID [facility] Last Admin: 11/28/16 10:19 Dose: 10 mg Heparin Sodium (Porcine) (Heparin -) 5,000 unit SQ BID [facility] Last Admin: 11/28/16 10:18 Dose: 5,000 unit Hydralazine HCl (Apresoline -) 50 mg PO BID [facility] Last Admin: 11/28/16 10:19 Dose: 50 mg Sodium Chloride (Normal Saline -) 1,000 mls @ 75 mls/hr IV ASDIR [facility] Last Admin: 11/28/16 02:50 Dose: 75 mls/hr Sodium Chloride (Normal Saline -) 1,000 mls @ 100 mls/hr IV ASDIR [facility] Last Admin: 11/28/16 13:42 Dose: 100 mls/hr Loratadine (Claritin -) 10 mg PO DAILY PRN PRN Reason: NASAL CONGESTION Multivitamins (Total B With C -) 1 each PO DAILY [facility] Last Admin: 11/28/16 10:19 Dose: 1 each Multivitamins/Minerals/Vitamin C (Tab-A-Vit -) 1 tab PO DAILY [facility] Last Admin: 11/28/16 10:19 Dose: 1 tab Non-Formulary Medication (Emtricitabine/Tenofov Alafenam [Descovy 200-25 Mg Tablet]) 1 each PO DAILY [facility] Quetiapine Fumarate (Seroquel -) 25 mg PO TID PRN PRN Reason: AGITATION Raltegravir (Isentress -) 400 mg PO BID [facility] Last Admin: 11/28/16 10:20 Dose: 400 mg Valsartan (Diovan -) 160 mg PO BID [facility] Last Admin: 11/28/16 10:19 Dose: 160 mg - Objective Vital Signs: Vital Signs Temperature 98.4 F 11/28/16 14:45 Pulse Rate 63 11/28/16 14:45 Respiratory Rate 20 11/28/16 14:45 Blood Pressure 132/96 11/28/16 09:07 O2 Sat by Pulse Oximetry (%) 100 11/28/16 09:00 HENT: Yes: Atraumatic Neck: Yes: Supple Cardiovascular: Yes: Regular Rate and Rhythm Respiratory: Yes: CTA Bilaterally Gastrointestinal: Yes: Normal Bowel Sounds Extremities: Yes: WNL Neurological: Yes: Alert, Oriented, Other (left side weakness, h/o cva) Labs: INR, PTT INR 1.04 (0.82-1.09) 11/27/16 23:20 Problem List - Problems (1) General weakness Code(s): R53.1 - WEAKNESS (2) HIV disease Code(s): B20 - HUMAN IMMUNODEFICIENCY VIRUS [HIV] DISEASE (3) Depressive disorder Code(s): F32.9 - MAJOR DEPRESSIVE DISORDER, SINGLE EPISODE, UNSPECIFIED (4) Essential hypertension Code(s): I10 - ESSENTIAL (PRIMARY) HYPERTENSION (5) Glaucoma Code(s): H40.9 - UNSPECIFIED GLAUCOMA (6) Hepatitis C Code(s): B19.20 - UNSPECIFIED VIRAL HEPATITIS C WITHOUT HEPATIC COMA Qualifiers: Hepatic coma status: without hepatic coma Assessment/Plan 61 year old woman with history of HIV, ischemic infarct with residual left sided weakness, epilepsy, colon ca, presented from [facility] with worsening left sided weakness for the last three days. Patient reports difficulty moving the left arm and leg, difficulty walking, memory loss and altered mental status. 1.HIV ON MEDS STABLE2 2.CVA NEW WEAKNESS MRI TODAY NEURO CONSULT REVIEWED
[2016-11-28] MEDS: ATORVASTATIN CA 10 MG TABLET (FP) PO SCH (21:51)
[2016-11-29] MEDS: SODIUM CHLORIDE 1,000 ML IV SCH (02:33)
[2016-11-29 06:58] LABS: MCH 33.2 pg (25.7-33.7); MCHC 34.4 g/dl (32.0-36.0); MEAN CELL VOLUME 96.5 fl (80-96); MEAN PLT VOLUME 6.9 fl (7.5-11.1); PLATELET COUNT 287 K/MM3 (134-434); RDW 13.2 % (11.6-15.6); WHITE BLOOD COUNT 4.6 K/mm3 (4.0-10.0)
[2016-11-29 07:37] LABS: CHOLESTEROL 161 mg/dL (50-200); LDL CHOLESTEROL (ONLY SJRH) 65 mg/dL (5-100)
[2016-11-29 07:52] LABS: ALK PHOS 40 U/L (45-117); ANION GAP 10 (8-16); BILIRUBIN,TOTAL 0.5 mg/dL (0.2-1.0); CALCIUM 9.3 mg/dL (8.5-10.1); CO2 25 mmol/L (21-32); CREATININE 0.9 mg/dL (0.55-1.02); GLUCOSE,RANDOM 74 mg/dL (74-106); MAGNESIUM 1.8 mg/dL (1.8-2.4); PHOSPHOROUS 2.8 mg/dL (2.5-4.9); SGOT/AST 29 U/L (15-37); SGPT/ALT 23 U/L (12-78); TOT PROT 6.5 g/dl (6.4-8.2)
[2016-11-29] MEDS ORDERED: PT OWN MED DRAWER 7, Y5N ONE ×2 (10:26→22:07)
[2016-11-29] MEDS: MULTIVITAMINS (DAILY MVI) TABLET (FP) PO SCH (10:35)
[2016-11-29] MEDS: RALTEGRAVIR POTASSIUM 400 MG TAB PO SCH ×2 (10:35→23:14)
[2016-11-29] MEDS: VITAMIN B COMPLEX W/C COMBO TABLET (FP) PO SCH (10:35)
[2016-11-29] MEDS: ASPIRIN 81 MG CHEWABLE TABLETS PO SCH (10:35)
[2016-11-29] MEDS: CYANOCOBALAMIN 1,000 MCG TABLET (FP) PO SCH (10:35)
[2016-11-29] MEDS: hydrALAZINE HCL 50 MG TABLET (FP) PO SCH ×2 (10:35→23:16)
[2016-11-29] MEDS: CYCLOBENZAPRINE HCL 10 MG TABLET (FP) PO SCH ×2 (10:35→23:15)
[2016-11-29] MEDS: VALSARTAN 160 MG TABLET (UD) PO SCH ×2 (10:35→23:16)
[2016-11-29] MEDS: CHLORTHALIDONE 25 MG TABLET PO SCH (10:35)
[2016-11-29] MEDS: CHOLECALCIFEROL (VITAMIN D3) 1,000 UNIT TABLET (FP) PO SCH (10:35)
[2016-11-29] MEDS: carBAMazepine 200 MG TABLET PO SCH ×2 (10:35→23:14)
[2016-11-29] MEDS: CALCIUM 500MG/VIT-D 200 UNITS COMBO TABLET (FP) PO SCH ×2 (10:35→23:15)
[2016-11-29] MEDS: HEPARIN NA (PORCINE) 5,000 UNITS/ML 1ML VIAL SQ SCH ×2 (10:48→23:16)
[2016-11-29 11:30] LABS: PLATELET COMMENT2 NO CLOTTING DETECTED; PLATELET ESTIMATE ADEQUATE (NORMAL)
--- NOTE | 2016-11-29 12:06 | PN ---
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 Patient reports difficulty moving the left arm and leg, difficulty walking, memory loss and altered mental status. 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) Hepatobiliary: Yes: Hepatitis C Infectious Disease: Yes: HIV (T cell 593) Psych: Yes: Bipolar Endocrine: Yes: Diabetes Mellitus - Past Surgical History Past Surgical History: Yes: Colostomy - Alcohol/Substance Use Hx Alcohol Use: No History of Substance Use: reports: Cocaine, Heroin (IVDU) - Smoking History Smoking history: Former smoker Have you smoked in the past 12 months: Yes Aproximately how many cigarettes per day: 10 - Social History ADL: Support Services Home Medications - Allergies Allergies/Adverse Reactions: Allergies Allergy/AdvReac Type Severity Reaction Status Date / Time haloperidol [From Haldol] Allergy Mild Verified 11/27/16 19:19 haloperidol lactate Allergy Mild Verified 11/27/16 19:19 [From Haldol] Penicillins Allergy Mild Rash Verified 11/27/16 19:19 fish derived Allergy Unknown Rash Verified 11/27/16 19:19 - Home Medications Home Medications: Ambulatory Orders Cyanocobalamin [Vitamin B12 -] 1,000 mcg PO DAILY 07/10/16 Cyclobenzaprine HCl [Flexeril -] 10 mg PO BID 07/10/16 Latanoprost 0.005% Eye Drops [Xalatan 0.005% Eye Drops -] 1 drop HS 07/10/16 Cholecalciferol (Vitamin D3) [Vitamin D3 -] 1,000 unit PO DAILY #30 tab Multivitamin [Poly-Vitamin] 1 each PO DAILY #30 tab.chew 08/07/16 Emtricitabine/Tenofov Alafenam [Descovy 200-25 mg Tablet] 1 each PO DAILY #30 tablet 08/14/16 Raltegravir [Isentress] 400 mg PO BID #60 tab 08/14/16 Chlorthalidone [Hygroton -] 25 mg PO DAILY #30 tablet 10/16/16 Hydralazine HCl [Apresoline -] 50 mg PO BID 10/16/16 Loratadine [Claritin -] 10 mg PO DAILY PRN #30 tablet 10/16/16 Pravastatin Sodium 10 mg PO HS 10/16/16 Sodium Chloride [Saline Nasal [place]] 1 - 2 sprays NS PRN #1 spray 10/16/16 Calcium Carbonate/Vitamin D3 [Calcium 500-Vit D3 200 Tablet] 1 each PO BID #60 tablet 10/23/16 Carbamazepine [Tegretol -] 200 mg PO BID #60 tablet 10/23/16 Vitamin B Complex 1 each PO DAILY #30 tablet 10/23/16 Clindamycin [Cleocin -] 300 mg PO TID #21 capsule 11/11/16 Quetiapine Fumarate [Seroquel -] 25 mg PO TID PRN #90 tablet 11/20/16 Valsartan [Diovan] 160 mg PO BID #60 tablet 11/20/16 Unobtainable 11/28/16 Review of Systems - Review of Systems Constitutional: reports: No Symptoms Eyes: reports: No Symptoms HENT: reports: No Symptoms Cardiovascular: reports: No Symptoms Respiratory: reports: No Symptoms Neurological: reports: Unsteady Gait Physical Exam Constitutional: Yes: No Distress Eyes: Yes: Conjunctiva Clear, EOM Intact HENT: Yes: Atraumatic, Normocephalic Cardiovascular: Yes: S1, S2 Respiratory: Yes: Regular (knows name, age, place) Neurological: Yes: Cran Nerves II-XII Intact ...Motor Strength: LUE, LLE (moderate left hemiparesis) Assessment/Plan 61 year old woman with history of HIV, 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 Patient reports difficulty moving the left arm and leg, difficulty walking, memory loss and altered mental status. CT head shows right cerebellar and right parietal lucency of indeterminant age NIHSS 4 - left arm drift, can hold left leg against gravity unable to sustain. Patient aaox3 Bilateral cerebral infarct MRI brain without contrast- right cerebellum, right occipital, left thalamus and left occipital lobe ischemic infarct Aspirin 81 mg daily Continue statin Echocardiogram pending Carotid doppler no significant stenosis Speech and swallow PT/OT
--- NOTE | 2016-11-29 17:26 | PN ---
Progress Note, Physician - Current Medication List Current Medications: Active Medications Aspirin (Asa -) 81 mg PO DAILY [facility] Last Admin: 11/29/16 10:35 Dose: 81 mg Atorvastatin Calcium (Lipitor -) 10 mg PO HS [facility] Last Admin: 11/28/16 21:51 Dose: 10 mg Calcium Carbonate/Cholecalciferol (Os-Bo 500+D -) 1 tab PO BID [facility] Last Admin: 11/29/16 10:35 Dose: 1 tab Carbamazepine (Tegretol -) 200 mg PO BID [facility] Last Admin: 11/29/16 10:35 Dose: 200 mg Chlorthalidone (Hygroton -) 25 mg PO DAILY [facility] Last Admin: 11/29/16 10:35 Dose: 25 mg Cholecalciferol (Vitamin D3 -) 1,000 unit PO DAILY [facility] Last Admin: 11/29/16 10:35 Dose: 1,000 unit Cyanocobalamin (Vitamin B12 -) 1,000 mcg PO DAILY [facility] Last Admin: 11/29/16 10:35 Dose: 1,000 mcg Cyclobenzaprine HCl (Flexeril -) 10 mg PO BID [facility] Last Admin: 11/29/16 10:35 Dose: 10 mg Heparin Sodium (Porcine) (Heparin -) 5,000 unit SQ BID [facility] Last Admin: 11/29/16 10:48 Dose: 5,000 unit Hydralazine HCl (Apresoline -) 50 mg PO BID [facility] Last Admin: 11/29/16 10:35 Dose: 50 mg Loratadine (Claritin -) 10 mg PO DAILY PRN PRN Reason: NASAL CONGESTION Multivitamins (Total B With C -) 1 each PO DAILY [facility] Last Admin: 11/29/16 10:35 Dose: 1 each Multivitamins/Minerals/Vitamin C (Tab-A-Vit -) 1 tab PO DAILY [facility] Last Admin: 11/29/16 10:35 Dose: 1 tab Non-Formulary Medication (Emtricitabine/Tenofov Alafenam [Descovy 200-25 Mg Tablet]) 1 each PO DAILY [facility] Quetiapine Fumarate (Seroquel -) 25 mg PO TID PRN PRN Reason: AGITATION Raltegravir (Isentress -) 400 mg PO BID [facility] Last Admin: 11/29/16 10:35 Dose: 400 mg Valsartan (Diovan -) 160 mg PO BID [facility] Last Admin: 11/29/16 10:35 Dose: 160 mg - Objective Vital Signs: Vital Signs Temperature 98.2 F 11/29/16 15:00 Pulse Rate 63 11/29/16 15:00 Respiratory Rate 18 11/29/16 15:00 Blood Pressure 120/80 11/29/16 15:00 O2 Sat by Pulse Oximetry (%) 100 11/29/16 15:57 Constitutional: Yes: No Distress HENT: Yes: Atraumatic Neck: Yes: Supple Cardiovascular: Yes: Regular Rate and Rhythm Respiratory: Yes: CTA Bilaterally Gastrointestinal: Yes: Normal Bowel Sounds Extremities: Yes: WNL Neurological: Yes: Alert, Oriented Labs: CBC, BMP 11/29/16 05:45 11/29/16 05:45 INR, PTT INR 1.04 (0.82-1.09) 11/27/16 23:20 Problem List - Problems (1) General weakness Code(s): R53.1 - WEAKNESS (2) HIV disease Code(s): B20 - HUMAN IMMUNODEFICIENCY VIRUS [HIV] DISEASE (3) Depressive disorder Code(s): F32.9 - MAJOR DEPRESSIVE DISORDER, SINGLE EPISODE, UNSPECIFIED (4) Essential hypertension Code(s): I10 - ESSENTIAL (PRIMARY) HYPERTENSION (5) Glaucoma Code(s): H40.9 - UNSPECIFIED GLAUCOMA (6) Hepatitis C Code(s): B19.20 - UNSPECIFIED VIRAL HEPATITIS C WITHOUT HEPATIC COMA Qualifiers: Hepatic coma status: without hepatic coma Assessment/Plan 61 year old woman with history of HIV, 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 Patient reports difficulty moving the left arm and leg, difficulty walking, memory loss and altered mental status. 1.HIV ON MEDS STABLE2 2.CVA NEW WEAKNESS MRI ...b/l cerebral infarct asas pt ot dc planning NEURO CONSULT REVIEWED
[2016-11-29] MEDS: ATORVASTATIN CA 10 MG TABLET (FP) PO SCH (23:15)
[2016-11-30] MEDS: hydrALAZINE HCL 50 MG TABLET (FP) PO SCH ×2 (11:01→22:55)
[2016-11-30] MEDS: MULTIVITAMINS (DAILY MVI) TABLET (FP) PO SCH (11:01)
[2016-11-30] MEDS: CALCIUM 500MG/VIT-D 200 UNITS COMBO TABLET (FP) PO SCH ×2 (11:01→22:54)
[2016-11-30] MEDS: CYCLOBENZAPRINE HCL 10 MG TABLET (FP) PO SCH ×2 (11:01→22:54)
[2016-11-30] MEDS: CYANOCOBALAMIN 1,000 MCG TABLET (FP) PO SCH (11:01)
[2016-11-30] MEDS: ASPIRIN 81 MG CHEWABLE TABLETS PO SCH (11:01)
[2016-11-30] MEDS: VALSARTAN 160 MG TABLET (UD) PO SCH ×2 (11:01→22:54)
[2016-11-30] MEDS: CHOLECALCIFEROL (VITAMIN D3) 1,000 UNIT TABLET (FP) PO SCH (11:01)
[2016-11-30] MEDS: VITAMIN B COMPLEX W/C COMBO TABLET (FP) PO SCH (11:03)
[2016-11-30] MEDS: carBAMazepine 200 MG TABLET PO SCH ×2 (11:03→22:54)
[2016-11-30] MEDS: RALTEGRAVIR POTASSIUM 400 MG TAB PO SCH ×2 (11:03→22:55)
[2016-11-30] MEDS: CHLORTHALIDONE 25 MG TABLET PO SCH (11:04)
[2016-11-30] MEDS: HEPARIN NA (PORCINE) 5,000 UNITS/ML 1ML VIAL SQ SCH ×2 (11:07→22:55)
--- NOTE | 2016-11-30 12:18 | PN ---
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 Patient reports difficulty moving the left arm and leg, difficulty walking, memory loss and altered mental status. 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) Psych: Yes: Bipolar Endocrine: Yes: Diabetes Mellitus - Past Surgical History Past Surgical History: Yes: Colostomy - Alcohol/Substance Use Hx Alcohol Use: No History of Substance Use: reports: Cocaine, Heroin (IVDU) - Smoking History Smoking history: Former smoker Have you smoked in the past 12 months: Yes Aproximately how many cigarettes per day: 10 - Social History ADL: Support Services Home Medications - Allergies Allergies/Adverse Reactions: Allergies Allergy/AdvReac Type Severity Reaction Status Date / Time haloperidol [From Haldol] Allergy Mild Verified 11/27/16 19:19 haloperidol lactate Allergy Mild Verified 11/27/16 19:19 [From Haldol] Penicillins Allergy Mild Rash Verified 11/27/16 19:19 fish derived Allergy Unknown Rash Verified 11/27/16 19:19 - Home Medications Home Medications: Ambulatory Orders Cyanocobalamin [Vitamin B12 -] 1,000 mcg PO DAILY 07/10/16 Cyclobenzaprine HCl [Flexeril -] 10 mg PO BID 07/10/16 Latanoprost 0.005% Eye Drops [Xalatan 0.005% Eye Drops -] 1 drop HS 07/10/16 Cholecalciferol (Vitamin D3) [Vitamin D3 -] 1,000 unit PO DAILY #30 tab Multivitamin [Poly-Vitamin] 1 each PO DAILY #30 tab.chew 08/07/16 Emtricitabine/Tenofov Alafenam [Descovy 200-25 mg Tablet] 1 each PO DAILY #30 tablet 08/14/16 Raltegravir [Isentress] 400 mg PO BID #60 tab 08/14/16 Chlorthalidone [Hygroton -] 25 mg PO DAILY #30 tablet 10/16/16 Hydralazine HCl [Apresoline -] 50 mg PO BID 10/16/16 Loratadine [Claritin -] 10 mg PO DAILY PRN #30 tablet 10/16/16 Pravastatin Sodium 10 mg PO HS 10/16/16 Sodium Chloride [Saline Nasal [place]] 1 - 2 sprays NS PRN #1 spray 10/16/16 Calcium Carbonate/Vitamin D3 [Calcium 500-Vit D3 200 Tablet] 1 each PO BID #60 tablet 10/23/16 Carbamazepine [Tegretol -] 200 mg PO BID #60 tablet 10/23/16 Vitamin B Complex 1 each PO DAILY #30 tablet 10/23/16 Clindamycin [Cleocin -] 300 mg PO TID #21 capsule 11/11/16 Quetiapine Fumarate [Seroquel -] 25 mg PO TID PRN #90 tablet 11/20/16 Valsartan [Diovan] 160 mg PO BID #60 tablet 11/20/16 Unobtainable 11/28/16 Review of Systems - Review of Systems Constitutional: reports: No Symptoms Eyes: reports: No Symptoms HENT: reports: No Symptoms Cardiovascular: reports: No Symptoms Respiratory: reports: No Symptoms Neurological: reports: Unsteady Gait Physical Exam Constitutional: Yes: No Distress Eyes: Yes: Conjunctiva Clear, EOM Intact HENT: Yes: Atraumatic, Normocephalic Cardiovascular: Yes: S1, S2 Respiratory: Yes: Regular (knows name, age, place) Neurological: Yes: Cran Nerves II-XII Intact ...Motor Strength: LUE, LLE (moderate left hemiparesis) Assessment/Plan 61 year old woman with history of HIV, 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 Patient reports difficulty moving the left arm and leg, difficulty walking, memory loss and altered mental status. CT head shows right cerebellar and right parietal lucency of indeterminant age NIHSS 2 - left arm drift, left leg drift Bilateral cerebral infarct, some improvement in exam MRI brain without contrast- right cerebellum, right occipital, left thalamus and left occipital lobe ischemic infarct Aspirin 81 mg daily Continue statin Carotid doppler no significant stenosis Speech and swallow Echo pending PT/OT
--- NOTE | 2016-11-30 14:22 | PN ---
Progress Note, Physician History of Present Illness: stable - Current Medication List Current Medications: Active Medications Aspirin (Asa -) 81 mg PO DAILY [facility] Last Admin: 11/30/16 11:01 Dose: 81 mg Atorvastatin Calcium (Lipitor -) 10 mg PO HS [facility] Last Admin: 11/29/16 23:15 Dose: 10 mg Calcium Carbonate/Cholecalciferol (Os-Bo 500+D -) 1 tab PO BID [facility] Last Admin: 11/30/16 11:01 Dose: 1 tab Carbamazepine (Tegretol -) 200 mg PO BID [facility] Last Admin: 11/30/16 11:03 Dose: 200 mg Chlorthalidone (Hygroton -) 25 mg PO DAILY [facility] Last Admin: 11/30/16 11:04 Dose: 25 mg Cholecalciferol (Vitamin D3 -) 1,000 unit PO DAILY [facility] Last Admin: 11/30/16 11:01 Dose: 1,000 unit Cyanocobalamin (Vitamin B12 -) 1,000 mcg PO DAILY [facility] Last Admin: 11/30/16 11:01 Dose: 1,000 mcg Cyclobenzaprine HCl (Flexeril -) 10 mg PO BID [facility] Last Admin: 11/30/16 11:01 Dose: 10 mg Heparin Sodium (Porcine) (Heparin -) 5,000 unit SQ BID [facility] Last Admin: 11/30/16 11:07 Dose: 5,000 unit Hydralazine HCl (Apresoline -) 50 mg PO BID [facility] Last Admin: 11/30/16 11:01 Dose: 50 mg Loratadine (Claritin -) 10 mg PO DAILY PRN PRN Reason: NASAL CONGESTION Multivitamins (Total B With C -) 1 each PO DAILY [facility] Last Admin: 11/30/16 11:03 Dose: 1 each Multivitamins/Minerals/Vitamin C (Tab-A-Vit -) 1 tab PO DAILY [facility] Last Admin: 11/30/16 11:01 Dose: 1 tab Non-Formulary Medication (Emtricitabine/Tenofov Alafenam [Descovy 200-25 Mg Tablet]) 1 each PO DAILY [facility] Quetiapine Fumarate (Seroquel -) 25 mg PO TID PRN PRN Reason: AGITATION Raltegravir (Isentress -) 400 mg PO BID [facility] Last Admin: 11/30/16 11:03 Dose: 400 mg Valsartan (Diovan -) 160 mg PO BID [facility] Last Admin: 11/30/16 11:01 Dose: 160 mg - Objective Vital Signs: Vital Signs Temperature 98.2 F 11/30/16 10:55 Pulse Rate 66 11/30/16 10:55 Respiratory Rate 18 11/30/16 10:55 Blood Pressure 120/89 11/30/16 10:55 O2 Sat by Pulse Oximetry (%) 100 11/29/16 22:00 Constitutional: Yes: No Distress HENT: Yes: Atraumatic Neck: Yes: Supple Cardiovascular: Yes: Regular Rate and Rhythm Respiratory: Yes: CTA Bilaterally Gastrointestinal: Yes: Normal Bowel Sounds Extremities: Yes: WNL Edema: No Neurological: Yes: Alert, Oriented Labs: CBC, BMP 11/29/16 05:45 11/29/16 05:45 INR, PTT INR 1.04 (0.82-1.09) 11/27/16 23:20 Problem List - Problems (1) General weakness Code(s): R53.1 - WEAKNESS (2) HIV disease Code(s): B20 - HUMAN IMMUNODEFICIENCY VIRUS [HIV] DISEASE (3) Depressive disorder Code(s): F32.9 - MAJOR DEPRESSIVE DISORDER, SINGLE EPISODE, UNSPECIFIED (4) Essential hypertension Code(s): I10 - ESSENTIAL (PRIMARY) HYPERTENSION (5) Glaucoma Code(s): H40.9 - UNSPECIFIED GLAUCOMA (6) Hepatitis C Code(s): B19.20 - UNSPECIFIED VIRAL HEPATITIS C WITHOUT HEPATIC COMA Qualifiers: Hepatic coma status: without hepatic coma Assessment/Plan 61 year old woman with history of HIV, ischemic infarct with residual left sided weakness, epilepsy, colon ca, presented from [facility] with worsening left sided weakness for the last three days. Patient reports difficulty moving the left arm and leg, difficulty walking, memory loss and altered mental status. 1.HIV ON MEDS STABLE2 2.CVA NEW WEAKNESS MRI ...b/l cerebral infarct asas pt ot dc planning NEURO CONSULT REVIEWED dc to snf in am
[2016-11-30] MEDS ORDERED: PT OWN MED DRAWER 7, Y5N ONE (22:45)
[2016-11-30] MEDS: ATORVASTATIN CA 10 MG TABLET (FP) PO SCH (22:54)
[2016-12-01] MEDS ORDERED: PT OWN MED DRAWER 7, Y5N ONE (09:41)
[2016-12-01] MEDS: VALSARTAN 160 MG TABLET (UD) PO SCH (09:57)
[2016-12-01] MEDS: CYCLOBENZAPRINE HCL 10 MG TABLET (FP) PO SCH (09:57)
[2016-12-01] MEDS: MULTIVITAMINS (DAILY MVI) TABLET (FP) PO SCH (09:57)
[2016-12-01] MEDS: CYANOCOBALAMIN 1,000 MCG TABLET (FP) PO SCH (09:57)
[2016-12-01] MEDS: CHLORTHALIDONE 25 MG TABLET PO SCH (09:57)
[2016-12-01] MEDS: CHOLECALCIFEROL (VITAMIN D3) 1,000 UNIT TABLET (FP) PO SCH (09:57)
[2016-12-01] MEDS: ASPIRIN 81 MG CHEWABLE TABLETS PO SCH (09:57)
[2016-12-01] MEDS: hydrALAZINE HCL 50 MG TABLET (FP) PO SCH (09:57)
[2016-12-01] MEDS: RALTEGRAVIR POTASSIUM 400 MG TAB PO SCH (09:57)
[2016-12-01] MEDS: CALCIUM 500MG/VIT-D 200 UNITS COMBO TABLET (FP) PO SCH (09:57)
[2016-12-01] MEDS: carBAMazepine 200 MG TABLET PO SCH (09:57)
[2016-12-01] MEDS: HEPARIN NA (PORCINE) 5,000 UNITS/ML 1ML VIAL SQ SCH (10:01)
[2016-12-01] MEDS: VITAMIN B COMPLEX W/C COMBO TABLET (FP) PO SCH (10:03)
--- NOTE | 2016-12-01 12:18 | PN ---
Progress Note, VISUAL DISPLAY MANAGER - Note Progress Note: Selected Entries 11/29/16 11/30/16 11/30/16 23:14 02:00 06:00 Breakfast Supper 100% Temperature 97.6 F 98.9 F 11/30/16 11/30/16 11/30/16 09:45 10:00 10:55 Breakfast 100% 100% Supper Temperature 98.2 F 11/30/16 11/30/16 11/30/16 14:56 18:53 22:00 Breakfast Supper Temperature 98.1 F 97.3 F L 98.4 F 11/30/16 12/01/16 23:03 02:20 Breakfast Supper 100% Temperature 98.1 F Tolerating diet with good appetite. Quite dysarthric with moderate to severe impairment of intelligibility due to impaired coordination of respiration with phonation, articulation and resonance, Pt will benefit from speech and swallowing tx at [place]. Communication board provided for improved functional communication.
[2016-12-01 15:29] VITALS: BP 131/84; PULSE 67; TEMP 97.7
--- NOTE | 2016-12-01 16:01 | PN ---
Progress Note, Physician Chief Complaint: left side weakness - Current Medication List Current Medications: Active Medications Aspirin (Asa -) 81 mg PO DAILY [facility] Last Admin: 12/01/16 09:57 Dose: 81 mg Atorvastatin Calcium (Lipitor -) 10 mg PO HS [facility] Last Admin: 11/30/16 22:54 Dose: 10 mg Calcium Carbonate/Cholecalciferol (Os-Bo 500+D -) 1 tab PO BID [facility] Last Admin: 12/01/16 09:57 Dose: 1 tab Carbamazepine (Tegretol -) 200 mg PO BID [facility] Last Admin: 12/01/16 09:57 Dose: 200 mg Chlorthalidone (Hygroton -) 25 mg PO DAILY [facility] Last Admin: 12/01/16 09:57 Dose: 25 mg Cholecalciferol (Vitamin D3 -) 1,000 unit PO DAILY [facility] Last Admin: 12/01/16 09:57 Dose: 1,000 unit Cyanocobalamin (Vitamin B12 -) 1,000 mcg PO DAILY [facility] Last Admin: 12/01/16 09:57 Dose: 1,000 mcg Cyclobenzaprine HCl (Flexeril -) 10 mg PO BID [facility] Last Admin: 12/01/16 09:57 Dose: 10 mg Heparin Sodium (Porcine) (Heparin -) 5,000 unit SQ BID [facility] Last Admin: 12/01/16 10:01 Dose: 5,000 unit Hydralazine HCl (Apresoline -) 50 mg PO BID [facility] Last Admin: 12/01/16 09:57 Dose: 50 mg Loratadine (Claritin -) 10 mg PO DAILY PRN PRN Reason: NASAL CONGESTION Multivitamins (Total B With C -) 1 each PO DAILY [facility] Last Admin: 12/01/16 10:03 Dose: Not Given Multivitamins/Minerals/Vitamin C (Tab-A-Vit -) 1 tab PO DAILY [facility] Last Admin: 12/01/16 09:57 Dose: 1 tab Non-Formulary Medication (Emtricitabine/Tenofov Alafenam [Descovy 200-25 Mg Tablet]) 1 each PO DAILY [facility] Quetiapine Fumarate (Seroquel -) 25 mg PO TID PRN PRN Reason: AGITATION Raltegravir (Isentress -) 400 mg PO BID [facility] Last Admin: 12/01/16 09:57 Dose: 400 mg Valsartan (Diovan -) 160 mg PO BID [facility] Last Admin: 12/01/16 09:57 Dose: 160 mg - Objective Vital Signs: Vital Signs Temperature 97.7 F 12/01/16 14:27 Pulse Rate 67 12/01/16 14:27 Respiratory Rate 14 12/01/16 14:27 Blood Pressure 131/84 12/01/16 14:27 O2 Sat by Pulse Oximetry (%) 97 12/01/16 09:00 Constitutional: Yes: No Distress, Calm Eyes: Yes: Conjunctiva Clear, EOM Intact, PERRL HENT: Yes: Atraumatic, Normocephalic Neck: Yes: Supple, Trachea Midline Cardiovascular: Yes: Regular Rate and Rhythm, S1, S2 Respiratory: Yes: Regular, CTA Bilaterally Musculoskeletal: Yes: Muscle Weakness (left side weakness) Edema: No Peripheral Pulses WNL: Yes Peripheral Pulses: Left Radial: 1+, Right Radial: 1+ Neurological: Yes: Alert, Oriented, Cran Nerves II-XII Intact, Pre-Existing Deficit (left side weakness) ...Motor Strength: RUE, RLE Psychiatric: Yes: Alert, Oriented Labs: CBC, BMP 11/29/16 05:45 11/29/16 05:45 INR, PTT INR 1.04 (0.82-1.09) 11/27/16 23:20 - ....Imaging MRI: Report Reviewed, Image Reviewed Problem List - Problems (1) Cerebrovascular accident (CVA) Code(s): I63.9 - CEREBRAL INFARCTION, UNSPECIFIED (2) Hemiparesis Code(s): G81.90 - HEMIPLEGIA, UNSPECIFIED AFFECTING UNSPECIFIED SIDE (3) Hemiparesis affecting left side as late effect of cerebrovascular accident Code(s): I69.354 - HEMIPLGA FOLLOWING CEREBRAL INFRC AFFECTING LEFT NONDOM SIDE Assessment/Plan 61 year old woman with history of HIV, ischemic infarct with residual left sided weakness, epilepsy, colon ca, presented from [facility] with worsening left sided weakness for the last three days. Patient reports difficulty moving the left arm and leg, difficulty walking, memory loss and altered mental status. CT head shows right cerebellar and right parietal lucency of indeterminant age NIHSS 2 - left arm drift, left leg drift MRI brain without contrast- right cerebellum, right occipital, left thalamus and left occipital lobe acute ischemic infarcts - stroke work up completed: echo done, carotid doppler no significant stenosis - PT/OTST-Speech and swallow - discharge to Rehabilitation. - continues ASA, Statin, BP control under 130mmHg. Consider adding Plavix to her ASA - she has bilateral acute ischemic infarcts ,which are seen in AFib. paroxysmal. - continues HIV medication. - follow up in the neurology clinic in 6 weeks.
--- NOTE | 2016-12-01 18:07 | DS ---
Physical Examination Vital Signs: Vital Signs Temperature 97.7 F 12/01/16 14:27 Pulse Rate 67 12/01/16 14:27 Respiratory Rate 14 12/01/16 14:27 Blood Pressure 131/84 12/01/16 14:27 O2 Sat by Pulse Oximetry (%) 97 12/01/16 09:00 Constitutional: Yes: No Distress HENT: Yes: Atraumatic Neck: Yes: Supple Cardiovascular: Yes: Regular Rate and Rhythm Respiratory: Yes: CTA Bilaterally Gastrointestinal: Yes: Normal Bowel Sounds Extremities: Yes: WNL Neurological: Yes: Alert, Oriented Labs: CBC, BMP 11/29/16 05:45 11/29/16 05:45 Discharge Summary Reason For Visit: AMS FAILURE TO THRIVE IN ADULT Current Active Problems Altered awareness, transient (Acute) Cerebrovascular accident (CVA) (Acute) Failure to thrive in adult (Acute) General weakness (Acute) HIV disease (Acute) Hemiparesis (Acute) Hemiparesis affecting left side as late effect of cerebrovascular accident ( Acute) Condition: Stable - Instructions Diet, Activity, Other Instructions: dysphagia puree diet nectar thick liquid Referrals: Renetta Hall [Primary Care Provider] - - Home Medications Comprehensive Discharge Medication List: Ambulatory Orders Cyanocobalamin [Vitamin B12 -] 1,000 mcg PO DAILY 07/10/16 Cyclobenzaprine HCl [Flexeril -] 10 mg PO BID 07/10/16 Latanoprost 0.005% Eye Drops [Xalatan 0.005% Eye Drops -] 1 drop HS 07/10/16 Cholecalciferol (Vitamin D3) [Vitamin D3 -] 1,000 unit PO DAILY #30 tab Multivitamin [Poly-Vitamin] 1 each PO DAILY #30 tab.chew 08/07/16 Emtricitabine/Tenofov Alafenam [Descovy 200-25 mg Tablet] 1 each PO DAILY #30 tablet 08/14/16 Raltegravir [Isentress] 400 mg PO BID #60 tab 08/14/16 Chlorthalidone [Hygroton -] 25 mg PO DAILY #30 tablet 10/16/16 Hydralazine HCl [Apresoline -] 50 mg PO BID 10/16/16 Loratadine [Claritin -] 10 mg PO DAILY PRN #30 tablet 10/16/16 Pravastatin Sodium 10 mg PO HS 10/16/16 Sodium Chloride [Saline Nasal [place]] 1 - 2 sprays NS PRN #1 spray 10/16/16 Calcium Carbonate/Vitamin D3 [Calcium 500-Vit D3 200 Tablet] 1 each PO BID #60 tablet 10/23/16 Carbamazepine [Tegretol -] 200 mg PO BID #60 tablet 10/23/16 Vitamin B Complex 1 each PO DAILY #30 tablet 10/23/16 Clindamycin [Cleocin -] 300 mg PO TID #21 capsule 11/11/16 Quetiapine Fumarate [Seroquel -] 25 mg PO TID PRN #90 tablet 11/20/16 Valsartan [Diovan] 160 mg PO BID #60 tablet 11/20/16 Aspirin [ASA -] 81 mg PO DAILY #30 tab.chew 11/30/16 dc to snf can add plavix 75 mg po daily as per neuro
== END 2016-12-01 20:10 | DRG 45 ==
LOC: JER 18:49 → JERBED 11-28 00:46 → J8W 11-28 04:12 → J4S 11-29 02:01
PROVIDERS: ADMIT Internal Medicine; ATTEND Internal Medicine
DX: I63.9 Cerebral infarction, unspecified (principal); I48.0 Paroxysmal atrial fibrillation; Z21 Asymptomatic human immunodeficiency virus [HIV] infection status; G81.94 Hemiplegia, unspecified affecting left nondominant side; F32.9 Major depressive disorder, single episode, unspecified; I10 Essential (primary) hypertension; H40.9 Unspecified glaucoma; B19.20 Unspecified viral hepatitis C without hepatic coma; R62.7 Adult failure to thrive; Z87.891 Personal history of nicotine dependence; R29.703 NIHSS score 3
CPT/HCPCS: 36415; 70450-TC; 70551-TC; 71010-TC; 74230-TC; 80053; 80061; 80307; 81003; 82550; 83036; 83721; 83735; 84100; 84484; 85025; 85610; 92611-GN; 93005; 93010; 93306-TC; 93880-TC; 97161-GP; 99283-25; J1644

== ENCOUNTER 2016-12-19 19:04 | Inpatient (IN) | payer OTHER ==
[2016-12-19 19:27] VITALS: BMI 20.9
[2016-12-19 20:34] LABS: MCH 31.9 pg (25.7-33.7); MEAN CELL VOLUME 96.8 fl (80-96); MEAN PLT VOLUME 8.4 fl (7.5-11.1); PLATELET COUNT 376 K/MM3 (134-434); RDW 13.2 % (11.6-15.6); WHITE BLOOD COUNT 20.4 K/mm3 (4.0-10.0)
--- NOTE | 2016-12-19 20:35 | PDOC ---
History of Present Illness - General History Source: EMS, Old Records Exam Limitations: Clinical Condition <Chapin Salgado - Last Filed: 12/19/16 21:34> - History of Present Illness Initial Comments: 12/19/16 21:30 Patient is a 61 year old female from [facility] with multiple comorbidities including asthma, HTN, HLD, hep C, bipolar disorder, seizure disorder, CVA w/ hemiparesis L sided residual weakness, and HIV (more hx listed below) who has been sent to the ED by Dr. Campo for failed modified barium swallow (12/18/16) and possible g-tube insertion. Patient has been NPO. The patient is on a pureed diet with honey thickened liquids. Patient is unable to provide history. PMHx: asthma, cervical cancer, colon cancer (colostomy secondary to perforated viscus), dysphagia, sigmoid volvulus, hypertension, hyperlipidemia, hepatitis C , bipolar disorder, depression, and seizures, HIV (last T4 count is 593), paranoid schizophrenia, B12 deficiency, diverticulitis with small intestine perforation and abscess, PMD: Elder Campo MD Social Hx: 5 cigarettes /daily, IVDA (heroin, cocaine), denies ETOH use <Laverne Brandt - Last Filed: 12/19/16 21:49> - General Chief Complaint: G Tube Problem Stated Complaint: G TUBE EVALUATION Time Seen by Provider: 12/19/16 19:34 Past History - Past Medical History Asthma: Yes Cancer: Yes (cervical ca, colon ca - colostomy) CVA: Yes Diabetes: Yes GI Disorders: Yes (Sigmoid Volvulus, colostomy secondary to perforated viscus) Disorders: Yes HTN: Yes Hypercholesterolemia: Yes Liver Disease: Yes (HEP C) Psychiatric Problems: Yes (Diagnosed with Bipolar and depression in past.) Seizures: Yes - Surgical History Abdominal Surgery: Yes (COLOSTOMY) - Immunization History Immunization Up to Date: Yes - Psycho/Social/Smoking Cessation Hx Anxiety: No Suicidal Ideation: No Smoking Status: Yes Smoking History: Former smoker Have you smoked in the past 12 months: No Number of Cigarettes Smoked Daily: 10 Cigars Per Day: 0 Information on smoking cessation initiated: No 'Breaking Loose' booklet given: 11/28/16 Hx Alcohol Use: No Drug/Substance Use Hx: No Substance Use Type: None Hx Substance Use Treatment: Yes <Chapin Salgado - Last Filed: 12/19/16 21:34> <Laverne Brandt - Last Filed: 12/19/16 21:49> - Past Medical History Allergies/Adverse Reactions: Allergies Allergy/AdvReac Type Severity Reaction Status Date / Time haloperidol [From Haldol] Allergy Mild Verified 11/27/16 19:19 haloperidol lactate Allergy Mild Verified 11/27/16 19:19 [From Haldol] Penicillins Allergy Mild Rash Verified 11/27/16 19:19 fish derived Allergy Unknown Rash Verified 11/27/16 19:19 Home Medications: Ambulatory Orders Cyanocobalamin [Vitamin B12 -] 1,000 mcg PO DAILY 07/10/16 Cyclobenzaprine HCl [Flexeril -] 10 mg PO BID 07/10/16 Latanoprost 0.005% Eye Drops [Xalatan 0.005% Eye Drops -] 1 drop HS 07/10/16 Cholecalciferol (Vitamin D3) [Vitamin D3 -] 1,000 unit PO DAILY #30 tab Multivitamin [Poly-Vitamin] 1 each PO DAILY #30 tab.chew 08/07/16 Emtricitabine/Tenofov Alafenam [Descovy 200-25 mg Tablet] 1 each PO DAILY #30 tablet 08/14/16 Raltegravir [Isentress] 400 mg PO BID #60 tab 08/14/16 Chlorthalidone [Hygroton -] 25 mg PO DAILY #30 tablet 10/16/16 Hydralazine HCl [Apresoline -] 50 mg PO BID 10/16/16 Loratadine [Claritin -] 10 mg PO DAILY PRN #30 tablet 10/16/16 Pravastatin Sodium 10 mg PO HS 10/16/16 Sodium Chloride [Saline Nasal [place]] 1 - 2 sprays NS PRN #1 spray 10/16/16 Calcium Carbonate/Vitamin D3 [Calcium 500-Vit D3 200 Tablet] 1 each PO BID #60 tablet 10/23/16 Carbamazepine [Tegretol -] 200 mg PO BID #60 tablet 10/23/16 Vitamin B Complex 1 each PO DAILY #30 tablet 10/23/16 Clindamycin [Cleocin -] 300 mg PO TID #21 capsule 11/11/16 Quetiapine Fumarate [Seroquel -] 25 mg PO TID PRN #90 tablet 11/20/16 Valsartan [Diovan] 160 mg PO BID #60 tablet 11/20/16 Aspirin [ASA -] 81 mg PO DAILY #30 tab.chew 11/30/16 Review of Systems - Review of Systems Comments:: 12/19/16 21:32 Patient unable to provide ROS <KarlyLaverne - Last Filed: 12/19/16 21:49> *Physical Exam - Vital Signs Last Vital Signs Temp Pulse Resp BP Pulse Ox 97.4 F L 150 H 21 146/110 87 L 12/19/16 19:16 12/19/16 19:16 12/19/16 19:16 12/19/16 19:16 12/19/16 19:16 <Chapin Salgado - Last Filed: 12/19/16 21:34> - Vital Signs Last Vital Signs Temp Pulse Resp BP Pulse Ox 97.4 F L 150 H 21 146/110 87 L 12/19/16 19:16 12/19/16 19:16 12/19/16 19:16 12/19/16 19:16 12/19/16 19:16 - Physical Exam Comments: 12/19/16 21:48 GENERAL: Tired appearing but awake, AAOX0, in no acute distress HEAD: No signs of trauma EYES: PERRLA, EOMI, sclera anicteric, conjunctiva clear ENT: Auricles normal inspection, hearing grossly normal, nares patent, oropharynx clear without exudates. Dry mucosa NECK: Normal ROM, supple, no lymphadenopathy, JVD, or masses LUNGS: Breath sounds equal, clear to auscultation bilaterally. No wheezes, and no crackles HEART: Regular rate and rhythm, normal S1 and S2, no murmurs, rubs or gallops ABDOMEN: Colostomy bag that is clean, dry and intact. Soft, nontender, normoactive bowel sounds. No guarding, no rebound. No masses EXTREMITIES: Normal range of motion, no edema. No clubbing or cyanosis. No cords, erythema, or tenderness NEUROLOGICAL: Cranial nerves II through XII grossly intact. SKIN: Warm, Dry, normal turgor, no rashes or lesions noted. ENDOCRINE: No increased thirst. No abnormal weight change. HEMATOLOGIC/LYMPHATIC: No anemia, easy bleeding, or history of blood clots. ALLERGIC/IMMUNOLOGIC: No hives or skin allergy. <Laverne Brandt - Last Filed: 12/19/16 21:49> Heart Score/ECG Review #1 ECG reviewed & interpreted by me at: 20:10 12/19/16 21:35 NSR STD II <Chapin Salgado - Last Filed: 12/19/16 21:34> ED Treatment Course - LABORATORY CBC & Chemistry Diagram: 12/19/16 20:21 12/19/16 20:21 - RADIOLOGY Radiology Studies Ordered: Category Date Time Status CHEST X-RAY PORTABLE* [RAD] Stat Radiology 12/19/16 19:42 Taken <NaomiChapin - Last Filed: 12/19/16 21:34> - LABORATORY CBC & Chemistry Diagram: 12/19/16 20:21 12/19/16 20:21 - ADDITIONAL ORDERS Additional order review: Laboratory Results 12/19/16 12/19/16 12/19/16 20:21 20:21 20:21 INR 1.09 PTT (Actin FS) 30.7 Sodium 153 H Potassium 4.3 Chloride 112 H Carbon Dioxide 26 Anion Gap 15 BUN 147 H* D Creatinine 4.8 H D Creat Clearance w eGFR 9.29 Random Glucose 158 H D Calcium 10.8 H Total Bilirubin 0.9 D AST 83 H D ALT 58 D Alkaline Phosphatase 123 H D Total Protein 9.2 H D Albumin 4.0 D Lipase 202 Blood Type A POSITIVE Antibody Screen Negative 12/19/16 20:21 RBC 5.17 D MCV 96.8 H MCHC 33.0 RDW 13.2 MPV 8.4 D Neutrophils % 85.0 H D Lymphocytes % 7.0 L D Monocytes % 6.0 <Laverne Brandt - Last Filed: 12/19/16 21:49> Medical Decision Making - Medical Decision Making 12/19/16 21:24 A portion of this note was documented by scribe services under my direction. I have reviewed the details of the note, within reason, and agree with the documentation with the following case summary and management plan written by me. Patient treated in the ED. Nursing notes are reviewed and incorporated into the medical decision-making. Vital signs reviewed. Peripheral IV access obtained by the nurse, laboratory studies are drawn and sent, reviewed and interpreted by myself. Vital Signs Temp Pulse Resp BP Pulse Ox 97.4 F L 150 H 21 146/110 87 L 12/19/16 19:16 12/19/16 19:16 12/19/16 19:16 12/19/16 19:16 12/19/16 19:16 61 year old female with Past medical history of stroke, HIV, hypertension, seizure disorder brought in by EMS for feeling modified barium swallow yesterday on 12/18/2016. The patient was sent in for G-tube insertion. The patient is unable to provide any further history. Initially, the plan was to admit the patient for G-tube placement given patient is unable to tolerate by mouth. However, patient is laboratory noted to be with acute renal sufficiency, hypernatremia, elevated white blood cell count of 20. The laboratory data suggest that the patient is hypovolemic. We have to presume that there is an infection as well. We'll investigate blood cultures and urine and chest x-ray. Empiric and a box ordered including vancomycin and Levaquin. IV fluids ordered. Ultimately, the patient be admitted for further workup. 12/19/16 21:41 Chest xray reviewed by me, pending official radiology read. No obvious infiltrates. CBC, BMP 12/19/16 20:21 12/19/16 20:21 CMP Sodium 153 mmol/L (136-145) H 12/19/16 20:21 Potassium 4.3 mmol/L (3.5-5.1) 12/19/16 20:21 Chloride 112 mmol/L (98-107) H 12/19/16 20:21 Carbon Dioxide 26 mmol/L (21-32) 12/19/16 20:21 Anion Gap 15 (8-16) 12/19/16 20:21 BUN 147 mg/dL (7-18) H* D 12/19/16 20:21 Creatinine 4.8 mg/dL (0.55-1.02) H D 12/19/16 20:21 Creat Clearance w eGFR 9.29 (>60) 12/19/16 20:21 Random Glucose 158 mg/dL (74-106) H D 12/19/16 20:21 Calcium 10.8 mg/dL (8.5-10.1) H 12/19/16 20:21 Total Bilirubin 0.9 mg/dL (0.2-1.0) D 12/19/16 20:21 AST 83 U/L (15-37) H D 12/19/16 20:21 ALT 58 U/L (12-78) D 12/19/16 20:21 Alkaline Phosphatase 123 U/L (45-117) H D 12/19/16 20:21 Total Protein 9.2 g/dl (6.4-8.2) H D 12/19/16 20:21 Albumin 4.0 g/dl (3.4-5.0) D 12/19/16 20:21 Lipase 202 U/L (73-393) 12/19/16 20:21 UA pending. The patient is noted to have multiple lab abnormalities including an elevated white count, hemoconcentration, hypernatremia 153, the 147 right knee and a 4.8 and mildly elevated calcium. I suspect that the patient is hypovolemic and is the likely cause. Patient will presumably be treated for infection as well. Case was discussed with Dr. Palm, who accepts the patient to telemetry admission. Case discussed in detail with admitting physician including history, physical exam and ancillary studies. Admitting physician has assumed care for the patient, will follow all pending diagnostics and will complete the evaluation and treatment. <Chapin Salgado - Last Filed: 12/19/16 21:34> - Critical Care Time Total Critical Care Time (minutes): 35 Critical Care Statement: The care of this patient involved high complexity decision making to prevent further life threatening deterioration of the patient 's condition and/or to evalute & treat vital organ system(s) failure or risk of failure. <Laverne Brandt - Last Filed: 12/19/16 21:49> *DC/Admit/Observation/Transfer - Discharge Dispostion Admit: Yes <Chapin Salgado - Last Filed: 12/19/16 21:34> - Attestations Scribe Attestion: 12/19/16 21:33 Documentation prepared by Laverne Brandt, acting as manager of medical for Chapin Salgado MD. <Laverne Brandt - Last Filed: 12/19/16 21:49> Diagnosis at time of Disposition: Hypernatremia Leukocytosis Qualifiers: Leukocytosis type: unspecified Qualified Code(s): D72.829 - Elevated white blood cell count, unspecified Acute renal failure Qualifiers: Acute renal failure type: unspecified Qualified Code(s): N17.9 - Acute kidney failure, unspecified - Referrals Referrals: Elder Campo MD [Primary Care Provider] -
[2016-12-19 20:50] LABS: INR 1.09 (0.82-1.09)
[2016-12-19 20:53] LABS: ACTIVATED PTT 30.7 SECONDS (26.9-34.4)
[2016-12-19 20:59] LABS: BILIRUBIN,TOTAL 0.9 mg/dL (0.2-1.0); CALCIUM 10.8 mg/dL (8.5-10.1); CREATININE 4.8 mg/dL (0.55-1.02); TOT PROT 9.2 g/dl (6.4-8.2)
[2016-12-19] MEDS ORDERED: SODIUM CHLORIDE 1,000 ML IV STA (21:13)
[2016-12-19] MEDS ORDERED: VANCOMYCIN 1,000 MG in DEXTROSE 5%-WATER - 250 ML IVPB ONE (21:13)
[2016-12-19] MEDS ORDERED: LEVOFLOXACIN 750 MG IVPB 150 ML IVPB ONE ×2 (21:13→21:18)
[2016-12-19] MEDS ORDERED: VANCOMYCIN 1 GRAM (PRE-DOCKED) 250 ML IVPB ONE (21:18)
[2016-12-19 21:25] LABS: PLATELET ESTIMATE ADEQUATE (NORMAL)
[2016-12-19 21:47] LABS: URINE APPEARANCE TURBID; URINE BILIRUBIN NEGATIVE (NEGATIVE); URINE COLOR YELLOW; URINE GLUCOSE (UA) NEGATIVE (NEGATIVE); URINE KETONE NEGATIVE (NEGATIVE); URINE NITRITE NEGATIVE (NEGATIVE); URINE UROBILINOGEN NEGATIVE E.U./dl (0.2-1.0)
[2016-12-19 21:50] LABS: URINE BLOOD 1+ (NEGATIVE); URINE LEUK ESTERASE 2+ (NEGATIVE); URINE PROTEIN 2+ (NEGATIVE)
[2016-12-19 21:53] LABS: URINE BACTERIA RARE /hpf (NONE SEEN); URINE MUCUS RARE; URINE RBC 82 /hpf (0-3); URINE WBC 4178 /hpf (3-5)
[2016-12-19] MEDS ORDERED: DEXTROSE 5%-0.45% SALINE 1,000 ML IV SCH (22:30)
[2016-12-19 22:54] LABS: TROPONIN I 0.06 ng/ml (0.00-0.05)
[2016-12-20 07:07] LABS: BASOPHIL 0.1 % (0-2.0); MCH 31.7 pg (25.7-33.7); MCHC 32.8 g/dl (32.0-36.0); MEAN CELL VOLUME 96.5 fl (80-96); MEAN PLT VOLUME 8.7 fl (7.5-11.1); NEUTROPHILS 86.7 % (42.8-82.8); PLATELET COUNT 323 K/MM3 (134-434); RDW 13.2 % (11.6-15.6); WHITE BLOOD COUNT 20.3 K/mm3 (4.0-10.0)
[2016-12-20 07:32] LABS: ALBUMIN 3.5 g/dl (3.4-5.0); CALCIUM 10.3 mg/dL (8.5-10.1)
[2016-12-20 07:36] LABS: BILIRUBIN,TOTAL 1.1 mg/dL (0.2-1.0); CREATININE 5.3 mg/dL (0.55-1.02); TOT PROT 8.1 g/dl (6.4-8.2)
--- NOTE | 2016-12-20 11:21 | CON.NEP ---
Consult Consult Specialty:: Nephrology Referred by:: Dr Palm Reason for Consultation:: EDGAR and hypernatremia - History of Present Illness History of Present Illness: Patient is a 61 year old female from [facility] with multiple comorbidities including asthma, HTN, HLD, HCV infection, bipolar disorder, seizure disorder, CVA w/ hemiparesis L sided residual weakness, who has been sent to the ED by Dr. Campo for failed modified barium swallow (12/18/16) and possible g-tube insertion. Patient has been NPO. The patient is on a pureed diet with honey thickened liquids. Patient is unable to provide history. Asked to evaluate pt for EDGAR and Hypernatremia - Past Medical History BARTENDER: Yes: CVA (2008, L sided residual), Seizure Cardio/Vascular: Yes: HTN, Hyperlipdemia, Other (Endocarditis) Gastrointestinal: Yes: Cancer (Stage 3 colon CA), Other (Sigmoid volvulus s/p colostomy 2/2 perforated viscus) Hepatobiliary: Yes: Hepatitis C Infectious Disease: Yes: HIV (T cell 593) Psych: Yes: Bipolar Endocrine: Yes: Diabetes Mellitus - Past Surgical History Past Surgical History: Yes: Colostomy - Alcohol/Substance Use Hx Alcohol Use: No History of Substance Use: reports: Cocaine, Heroin (IVDU) - Smoking History Smoking history: Former smoker Have you smoked in the past 12 months: No Aproximately how many cigarettes per day: 10 - Social History ADL: Support Services Home Medications - Allergies Allergies/Adverse Reactions: Allergies Allergy/AdvReac Type Severity Reaction Status Date / Time haloperidol [From Haldol] Allergy Mild Verified 11/27/16 19:19 haloperidol lactate Allergy Mild Verified 11/27/16 19:19 [From Haldol] Penicillins Allergy Mild Rash Verified 11/27/16 19:19 fish derived Allergy Unknown Rash Verified 11/27/16 19:19 - Home Medications Home Medications: Ambulatory Orders Cyanocobalamin [Vitamin B12 -] 1,000 mcg PO DAILY 07/10/16 Cyclobenzaprine HCl [Flexeril -] 10 mg PO BID 07/10/16 Latanoprost 0.005% Eye Drops [Xalatan 0.005% Eye Drops -] 1 drop HS 07/10/16 Cholecalciferol (Vitamin D3) [Vitamin D3 -] 1,000 unit PO DAILY #30 tab Multivitamin [Poly-Vitamin] 1 each PO DAILY #30 tab.chew 08/07/16 Emtricitabine/Tenofov Alafenam [Descovy 200-25 mg Tablet] 1 each PO DAILY #30 tablet 08/14/16 Raltegravir [Isentress] 400 mg PO BID #60 tab 08/14/16 Chlorthalidone [Hygroton -] 25 mg PO DAILY #30 tablet 10/16/16 Hydralazine HCl [Apresoline -] 50 mg PO BID 10/16/16 Loratadine [Claritin -] 10 mg PO DAILY PRN #30 tablet 10/16/16 Pravastatin Sodium 10 mg PO HS 10/16/16 Sodium Chloride [Saline Nasal [place]] 1 - 2 sprays NS PRN #1 spray 10/16/16 Calcium Carbonate/Vitamin D3 [Calcium 500-Vit D3 200 Tablet] 1 each PO BID #60 tablet 10/23/16 Carbamazepine [Tegretol -] 200 mg PO BID #60 tablet 10/23/16 Vitamin B Complex 1 each PO DAILY #30 tablet 10/23/16 Clindamycin [Cleocin -] 300 mg PO TID #21 capsule 11/11/16 Quetiapine Fumarate [Seroquel -] 25 mg PO TID PRN #90 tablet 11/20/16 Valsartan [Diovan] 160 mg PO BID #60 tablet 11/20/16 Aspirin [ASA -] 81 mg PO DAILY #30 tab.chew 11/30/16 Nephrology Consult - Height Height: 5 ft 6 in - Weight Weight: 130 lb - BMI Body Mass Index (BMI): 20.9 - Lab Results CBC,BMP: CBC, BMP 12/20/16 05:20 12/20/16 05:20 U/A: Laboratory Tests 12/19/16 21:35 Urine Color Yellow Urine Appearance Turbid Urine pH 5.0 D Ur Specific Rex 1.017 Urine Glucose (UA) Negative Urine Ketones Negative Urine Blood 1+ H Urine Nitrite Negative Urine Bilirubin Negative Urine Urobilinogen Negative Ur Leukocyte Esterase 2+ H Urine RBC 82 Urine WBC 4178 Anion Gap: Anion Gap Anion Gap 20 (8-16) H 12/20/16 05:20 - Imaging Chest X-ray: Report Reviewed, Other (No acute pathology) EKG: Report Reviewed - Physical Examination Vital Signs: Vital Signs Temperature 97.8 F 12/20/16 09:55 Pulse Rate 92 H 12/20/16 09:55 Respiratory Rate 18 12/20/16 09:55 Blood Pressure 130/90 12/20/16 09:55 O2 Sat by Pulse Oximetry (%) 94 L 12/19/16 22:04 Cardiovascular: Yes: S2, S3. No: JVD, Rub Respiratory: Yes: Regular, CTA Bilaterally Gastrointestinal: Yes: Soft, Other (Colostomy in place) Edema: No Neurological: Yes: Other (POORLY RESPONSIVE) Assessment/Plan Impression EDGAR with hypernatremia from NaCL and volume depletion Failure to thrive Pyuria HTN Bipolar Disease Asthma HIV and HCV + S/P CVA Colon Ca with Colostomy Plan Sepsis w/u Empiric Abx with adjustment for EDGAR Increase IVF to 150 cc/hr Rpt labs in am Reasssess need for feeding tube once stabilized Discussed with PMD Thank You Dr Maldonado
--- NOTE | 2016-12-20 11:36 | HP ---
Admitting History and Physical - Primary Care Physician PCP: Elder Campo - Admission Chief Complaint: acute renal failure History of Present Illness: ER HISTORY - History of Present Illness Initial Comments: 12/19/16 21:30 Patient is a 61 year old female from [facility] with multiple comorbidities including asthma, HTN, HLD, hep C, bipolar disorder, seizure disorder, CVA w/ hemiparesis L sided residual weakness, and HIV (more hx listed below) who has been sent to the ED by Dr. Campo for failed modified barium swallow (12/18/16) and possible g-tube insertion. Patient has been NPO. The patient is on a pureed diet with honey thickened liquids. Patient is unable to provide history. PMHx: asthma, cervical cancer, colon cancer (colostomy secondary to perforated viscus), dysphagia, sigmoid volvulus, hypertension, hyperlipidemia, hepatitis C , bipolar disorder, depression, and seizures, HIV (last T4 count is 593), paranoid schizophrenia, B12 deficiency, diverticulitis with small intestine perforation and abscess, PMD: Elder Campo MD Social Hx: 5 cigarettes /daily, IVDA (heroin, cocaine), denies ETOH use Pt seen by me in Tele Baseline- not aphasic, but she whispers and mouths out words. Today though she is very drowsy, mouth dry. She failed MBS. She was not eating well at [place] despite modifying diet History Source: Medical Record Limitations to Obtaining History: Unresponsive - Past Medical History BOAT DRIVER: Yes: CVA (2007, L sided residual), Seizure Cardiovascular: Yes: HTN, Hyperlipdemia, Other (Endocarditis) Gastrointestinal: Yes: Cancer (Stage 3 colon CA), Other (Sigmoid volvulus s/p colostomy 2/2 perforated viscus) Hepatobiliary: Yes: Hepatitis C Infectious Disease: Yes: HIV (T cell 593) Psych: Yes: Bipolar Endocrine: Yes: Diabetes Mellitus - Past Surgical History Past Surgical History: Yes: Colostomy - Smoking History Smoking history: Former smoker Have you smoked in the past 12 months: No Aproximately how many cigarettes per day: 10 - Alcohol/Substance Use Hx Alcohol Use: No History of Substance Use: reports: Cocaine, Heroin (IVDU) - Social History ADL: Support Services Home Medications - Allergies Allergies/Adverse Reactions: Allergies Allergy/AdvReac Type Severity Reaction Status Date / Time haloperidol [From Haldol] Allergy Mild Verified 11/27/16 19:19 haloperidol lactate Allergy Mild Verified 11/27/16 19:19 [From Haldol] Penicillins Allergy Mild Rash Verified 11/27/16 19:19 fish derived Allergy Unknown Rash Verified 11/27/16 19:19 - Home Medications Home Medications: Ambulatory Orders Cyanocobalamin [Vitamin B12 -] 1,000 mcg PO DAILY 07/10/16 Cyclobenzaprine HCl [Flexeril -] 10 mg PO BID 07/10/16 Latanoprost 0.005% Eye Drops [Xalatan 0.005% Eye Drops -] 1 drop HS 07/10/16 Cholecalciferol (Vitamin D3) [Vitamin D3 -] 1,000 unit PO DAILY #30 tab Multivitamin [Poly-Vitamin] 1 each PO DAILY #30 tab.chew 08/07/16 Emtricitabine/Tenofov Alafenam [Descovy 200-25 mg Tablet] 1 each PO DAILY #30 tablet 08/14/16 Raltegravir [Isentress] 400 mg PO BID #60 tab 08/14/16 Chlorthalidone [Hygroton -] 25 mg PO DAILY #30 tablet 10/16/16 Hydralazine HCl [Apresoline -] 50 mg PO BID 10/16/16 Loratadine [Claritin -] 10 mg PO DAILY PRN #30 tablet 10/16/16 Pravastatin Sodium 10 mg PO HS 10/16/16 Sodium Chloride [Saline Nasal [place]] 1 - 2 sprays NS PRN #1 spray 10/16/16 Calcium Carbonate/Vitamin D3 [Calcium 500-Vit D3 200 Tablet] 1 each PO BID #60 tablet 10/23/16 Carbamazepine [Tegretol -] 200 mg PO BID #60 tablet 10/23/16 Vitamin B Complex 1 each PO DAILY #30 tablet 10/23/16 Clindamycin [Cleocin -] 300 mg PO TID #21 capsule 11/11/16 Quetiapine Fumarate [Seroquel -] 25 mg PO TID PRN #90 tablet 11/20/16 Valsartan [Diovan] 160 mg PO BID #60 tablet 11/20/16 Aspirin [ASA -] 81 mg PO DAILY #30 tab.chew 11/30/16 Review of Systems Unable to obtain ROS, reason: lethargic Physical Examination Vital Signs: Vital Signs Temperature 97.8 F 03/18/17 09:55 Pulse Rate 92 H 12/20/16 09:55 Respiratory Rate 18 12/20/16 09:55 Blood Pressure 130/90 12/20/16 09:55 O2 Sat by Pulse Oximetry (%) 94 L 12/19/16 22:04 Constitutional: Yes: Other (dehydrated, dry mouth) Cardiovascular: Yes: Regular Rate and Rhythm Respiratory: Yes: Diminished Gastrointestinal: Yes: Normal Bowel Sounds, Soft. No: Distention, Tenderness Edema: No Neurological: Yes: Other (drowsy) Labs: CBC, BMP 12/20/16 05:20 12/20/16 05:20 Imaging - Results Chest X-ray: Image Reviewed (?infiltrate) EKG: Image Reviewed (NSR) Problem List - Problems (1) Acute renal failure Code(s): N17.9 - ACUTE KIDNEY FAILURE, UNSPECIFIED Qualifiers: Acute renal failure type: with acute renal cortical necrosis Qualified Code(s): N17.1 - Acute kidney failure with acute cortical necrosis (2) COPD (chronic obstructive pulmonary disease) Code(s): J44.9 - CHRONIC OBSTRUCTIVE PULMONARY DISEASE, UNSPECIFIED Qualifiers : COPD type: chronic bronchitis (3) Leukocytosis Code(s): D72.829 - ELEVATED WHITE BLOOD CELL COUNT, UNSPECIFIED Qualifiers: Leukocytosis type: unspecified Qualified Code(s): D72.829 - Elevated white blood cell count, unspecified (4) Sepsis Code(s): A41.9 - SEPSIS, UNSPECIFIED ORGANISM Assessment/Plan PLAN IV antibiotics Cultures pending Spoke with Renal and Cardiology IV fluids Tele monitoring hold meds as pt can not take PO trend cardiac enzymes Check output-- kimble placed repeat lactic acid ID eval Guarded prognosis
[2016-12-20] MEDS ORDERED: LABETALOL HCL 5 MG/1 ML (100MG/20 ML VIAL) IVPUSH PRN (11:37)
[2016-12-20] MEDS ORDERED: DEXTROSE 5%-0.45% SALINE 1,000 ML IV SCH (11:38)
[2016-12-20] MEDS ORDERED: ACETAMINOPHEN 650 MG SUPP.RECT PR PRN (11:39)
--- NOTE | 2016-12-20 13:16 | CON.CARD ---
Consult Consult Specialty:: Cardiology Referred by:: Dr. Palm Reason for Consultation:: Elevated troponin - History of Present Illness Chief Complaint: Admitted for dehydration, possible infection, failure to thrive , inadequate po intake History of Present Illness: 61 year old woman with a history of HTN, HLD, HCV, Bipolar/Schizophrenia, Seizures, Asthma, CVA with L hemiparesis, HIV, Colon CA with perforated intestine and colostomy, polysubstance abuse including IVDA, [place] resident, admitted for inadequate po intake, severe dehydration. Pt noted to have elevated wbc, bun/creat c/w severe dehydration and incidentally a slightly elevated troponin. Pt. seen and examined today in nad. pt non-verbal, minimally responsive. unable to provide a history. no reported history of chest pain or sob. 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) Psych: Yes: Bipolar Endocrine: Yes: Diabetes Mellitus - Past Surgical History Past Surgical History: Yes: Colostomy - Alcohol/Substance Use Hx Alcohol Use: No History of Substance Use: reports: Cocaine, Heroin (IVDU) - Smoking History Smoking history: Former smoker Have you smoked in the past 12 months: No Aproximately how many cigarettes per day: 10 - Social History ADL: Support Services Home Medications - Allergies Allergies/Adverse Reactions: Allergies Allergy/AdvReac Type Severity Reaction Status Date / Time haloperidol [From Haldol] Allergy Mild Verified 11/27/16 19:19 haloperidol lactate Allergy Mild Verified 11/27/16 19:19 [From Haldol] Penicillins Allergy Mild Rash Verified 11/27/16 19:19 fish derived Allergy Unknown Rash Verified 11/27/16 19:19 - Home Medications Home Medications: Ambulatory Orders Cyanocobalamin [Vitamin B12 -] 1,000 mcg PO DAILY 07/10/16 Cyclobenzaprine HCl [Flexeril -] 10 mg PO BID 07/10/16 Latanoprost 0.005% Eye Drops [Xalatan 0.005% Eye Drops -] 1 drop HS 07/10/16 Cholecalciferol (Vitamin D3) [Vitamin D3 -] 1,000 unit PO DAILY #30 tab Multivitamin [Poly-Vitamin] 1 each PO DAILY #30 tab.chew 08/07/16 Emtricitabine/Tenofov Alafenam [Descovy 200-25 mg Tablet] 1 each PO DAILY #30 tablet 08/14/16 Raltegravir [Isentress] 400 mg PO BID #60 tab 08/14/16 Chlorthalidone [Hygroton -] 25 mg PO DAILY #30 tablet 10/16/16 Hydralazine HCl [Apresoline -] 50 mg PO BID 10/16/16 Loratadine [Claritin -] 10 mg PO DAILY PRN #30 tablet 10/16/16 Pravastatin Sodium 10 mg PO HS 10/16/16 Sodium Chloride [Saline Nasal [place]] 1 - 2 sprays NS PRN #1 spray 10/16/16 Calcium Carbonate/Vitamin D3 [Calcium 500-Vit D3 200 Tablet] 1 each PO BID #60 tablet 10/23/16 Carbamazepine [Tegretol -] 200 mg PO BID #60 tablet 10/23/16 Vitamin B Complex 1 each PO DAILY #30 tablet 10/23/16 Clindamycin [Cleocin -] 300 mg PO TID #21 capsule 11/11/16 Quetiapine Fumarate [Seroquel -] 25 mg PO TID PRN #90 tablet 11/20/16 Valsartan [Diovan] 160 mg PO BID #60 tablet 11/20/16 Aspirin [ASA -] 81 mg PO DAILY #30 tab.chew 11/30/16 Vital Signs: Vital Signs Temperature 97.8 F 12/20/16 09:55 Pulse Rate 92 H 12/20/16 09:55 Respiratory Rate 18 12/20/16 09:55 Blood Pressure 130/90 12/20/16 09:55 O2 Sat by Pulse Oximetry (%) 94 L 12/19/16 22:04 - Other Data Labs, Other Data: CBC, BMP 12/20/16 05:20 12/20/16 05:20 INR, PTT INR 1.09 (0.82-1.09) 12/19/16 20:21 Assessment/Plan 61 year old woman with a history of HTN, HLD, HCV, Bipolar/Schizophrenia, Seizures, Asthma, CVA with L hemiparesis, HIV, Colon CA with perforated intestine and colostomy, polysubstance abuse including IVDA, [place] resident, admitted for inadequate po intake, severe dehydration. Pt noted to have elevated wbc, bun/creat c/w severe dehydration and incidentally a slightly elevated troponin. pt non-verbal, minimally responsive. unable to provide a history. no reported history of chest pain or sob. Elevated troponin -minimally elevated in the setting of [place], severe dehydration -unlikely ACS, more likely secondary to the above -ekg shows nonspecific ST abnl, no clear ischemia -trend serial cardiac enzymes -hold off on heparin for now -plan to check echo -cont tele for now -at this point, no clear benefit to pursuing additional ischemic work up, if pts overall condition improves would consider HTN-adequately controlled for now -can cont prn Labetalol for now until tolerates po medications or via PEG
[2016-12-20 13:17] LABS: TROPONIN I 0.09 ng/ml (0.00-0.05)
[2016-12-20] MEDS ORDERED: SODIUM CHLORIDE 1,000 ML IV STA (18:05)
[2016-12-20] MEDS ORDERED: CLINDAMYCIN 600MG PREMIX IVPB 50 ML IVPB ONE (18:07)
[2016-12-20] MEDS ORDERED: PROPOFOL 100 ML IVPB SCH (18:30)
[2016-12-20 18:31] VITALS: TEMP 100.4
--- NOTE | 2016-12-20 18:31 | PROC ---
Intubation - Intubation Reason for Intubation: Respiratory Failure Time of Intubation: 18:00 Intubation Method: orotracheal Blade used: Mac (3) Tube Size (cm): 7.5 Tube position @ lip (cm): 20 Tube position confirmed by: Direct visualization, CO2 detector, Chest x-ray ( pending), Breath sounds Breath Sounds after Intubation: equal Post Intubation Xray: Yes (pending) Remarks: Code 99 called at 1752. Arrived on [address], patient unresponsive and in respiratory arrest with agonal breathing. Bag-mask ventilation performed by respiratory therapist. Assumed control of airway from respiratory therapist and assisted patient's spontaneous breathing with bag-mask. Good chest rise and mask condensation noted. Direct laryngoscopy attempted with some hindrance due to 2 prominent lower incisors. CL grade 3 view - improved to 2B with some cricoid pressure. Orophaynx suctioned. Unable to pass 7.5 endotracheal tube through vocal cords on first attempt due to laryngospasm on contact. Resumed bag-mask ventilation, which was adequate, and requested videolarygoscope and succinylcholine. Succinylcholine unavailable. ~1800: 2nd attempt at direct laryngoscopy made, oropharynx suctioned. CL grade 2A view obtained with cricoid pressure, 7.5 ETT passed atraumatically through vocal cords under direct visualization when opened. Position confirmed with CO @ detector color change to yellow, breath sounds equal bilaterally with ETT 20 cm deep at the lip. ETT secured at 20 cm by respiratory therapist. Chest x-ray ordered to confirm tube position.
[2016-12-20 18:53] LABS: ARTERIAL BLD GAS O2 SATURATION 99.6 % (90-98.9); ARTERIAL BLOOD GAS BASE EXCESS -18.4 meq/l (-2-2); ARTERIAL BLOOD GAS HCO3 8.9 meq/L (22-26)
[2016-12-20 18:55] LABS: ALLENS TEST POSITIVE; ART PUNCT SITE RIGHT RADIAL; LPM/O2% 100%; MECH. VENT. YES; PT. ON O2? YES; TYPE OF O2 MEC.VENT; VT/PRESS 400
[2016-12-20 18:56] LABS: ARTERIAL BLOOD GAS pH 7.18 (7.35-7.45); VENT RATE 12
--- NOTE | 2016-12-20 19:02 | RAPID ---
Physical Examination Vital Signs: Vital Signs Temperature 100.4 F H 12/20/16 17:20 Pulse Rate 110 H 12/20/16 17:00 Respiratory Rate 12 12/20/16 18:37 Blood Pressure 106/70 12/20/16 17:00 O2 Sat by Pulse Oximetry (%) 97 12/20/16 09:55 Constitutional: Yes: Severe Distress, Poor Hygeine HENT: Yes: Atraumatic Cardiovascular: Yes: Tachycardia, S1, S2 Respiratory: Yes: Accessory Muscle Use, Poor Air Entry, Rales, SOB Gastrointestinal: Yes: Normal Bowel Sounds, Soft Renal/: Yes: Oliguria (dark concentrated urine) Peripheral Pulses: Left Radial: 1+, Right Radial: 1+ Neurological: Yes: Confusion Labs: CBC, BMP 12/20/16 05:20 12/20/16 05:20 Rapid Response - Rapid Response Assessment: Patient is a 61 year old female from [facility] with multiple comorbidities including asthma, HTN, HLD, hep C, bipolar disorder, seizure disorder, CVA w/ hemiparesis L sided residual weakness, and HIV who brought to ED after failing barium swallow. Pt was septic, in acute renal failure. Rapid response was called. Pt is found in respiratory distress, tachypneic, tachycardic, agonal breathing, and poorly responsive. After assessing vitals. Pt IV fluid was started. Pt was intubated and placed on ventilator. Pt was transfer ICU. Lots of GI aspirate was suctioned in the airway during intubation CBC, CMP, Mg, Phos, cardiac [place], lactic acid, ABG, CXR, blood culture, urine culture 1 liter bolus IV fluid NS ordered 2nd liter NS ordered One dose of clindamycin 600mg IV once ordered 1 gm of vancomycin IV Propofol drip Dr Gonzalez, ICU atomic fuel assembler made aware call placed to Dr Carley Snowden, Dr John Campo called back Critical Care Total Critical Care Time (in minutes): 45 Critical Care Statement: The care of this patient involved high complexity decision making to prevent further life threatening deterioration of the patient 's condition and/or to evalute & treat vital organ system(s) failure or risk of failure.
[2016-12-20] MEDS ORDERED: VANCOMYCIN 1 GRAM (PRE-DOCKED) 250 ML IVPB ONE (19:07)
[2016-12-20] MEDS ORDERED: ATROPINE SULFATE 1 MG/10 ML DISP.SYRIN ONE (21:02)
[2016-12-20] MEDS ORDERED: NOREPINEPHRINE BITARTRATE 4 MG/4 ML ML IV ONE (21:05)
--- NOTE | 2016-12-20 21:30 | PN ---
Progress Note (short form) - Note Progress Note: Called by RN for hypotension BP 80/40. Patient developed PEA ARREST @ 21:07 ACLS efforts started. EPI x2, patient developed VF shock @ 120J x1 Unable to obtain ROSC Time of 21:13 No spont resp, heart sounds, or CN Called Attend MD: Sp Called Next of kin: Nima Mays [phone] (left message) Called Sister Darshana Ceballos: [phone] Cause of : HIV, colon cancer, COPD, CVA, septic shock likely from aspiration: multifocal pneumonia Boerem ACNP Pulm/CCM CCT: 60m Problem List - Problems (1) Cerebrovascular accident (CVA) Code(s): I63.9 - CEREBRAL INFARCTION, UNSPECIFIED (2) HIV disease Code(s): B20 - HUMAN IMMUNODEFICIENCY VIRUS [HIV] DISEASE (3) Hemiparesis affecting left side as late effect of cerebrovascular accident Code(s): I69.354 - HEMIPLGA FOLLOWING CEREBRAL INFRC AFFECTING LEFT NONDOM SIDE (4) Hepatitis C Code(s): B19.20 - UNSPECIFIED VIRAL HEPATITIS C WITHOUT HEPATIC COMA Qualifiers: Hepatic coma status: without hepatic coma (5) COPD (chronic obstructive pulmonary disease) Code(s): J44.9 - CHRONIC OBSTRUCTIVE PULMONARY DISEASE, UNSPECIFIED (6) Respiratory failure Code(s): J96.90 - RESPIRATORY FAILURE, UNSP, UNSP W HYPOXIA OR HYPERCAPNIA
[2016-12-20 22:11] VITALS: BP 70/40; PULSE 58
[2016-12-21] MEDS ORDERED: LEVOFLOXACIN 250 MG IVPB 50 ML IVPB SCH (10:00)
--- NOTE | 2016-12-21 11:22 | EKG ---
Test Reason : Blood Pressure : / mmHG Vent. Rate : 100 BPM Atrial Rate : 100 BPM P-R Int : 176 ms QRS Dur : 108 ms QT Int : 384 ms P-R-T Axes : 072 045 081 degrees QTc Int : 495 ms NORMAL SINUS RHYTHM POSSIBLE LEFT ATRIAL ENLARGEMENT NONSPECIFIC ST AND T WAVE ABNORMALITY PROLONGED QT ABNORMAL ECG WHEN COMPARED WITH ECG OF 27-NOV-2016 23:57, VENT. RATE HAS INCREASED BY 43 BPM T WAVE INVERSION NO LONGER EVIDENT IN ANTEROLATERAL LEADS QT HAS LENGTHENED Confirmed by RIVERA BLACKBURN MD ([id number]) on 12/21/2016 11:22:09 AM Referred By: Confirmed By:RIVERA BLACKBURN MD
--- NOTE | 2016-12-21 22:29 | DS ---
Physical Examination Vital Signs: Vital Signs Temperature 100.4 F H 12/20/16 17:20 Pulse Rate 58 L 12/20/16 21:00 Respiratory Rate 12 12/20/16 21:00 Blood Pressure 70/40 12/20/16 21:00 O2 Sat by Pulse Oximetry (%) 97 12/20/16 09:55 Labs: CBC, BMP 12/20/16 05:20 12/20/16 05:20 Discharge Summary Reason For Visit: G TUBE EVALUATION Current Active Problems Acute renal failure (Acute) COPD (chronic obstructive pulmonary disease) (Acute) Hypernatremia (Acute) Leukocytosis (Acute) Respiratory failure (Acute) Hospital Course: due to septic shock, multi-organ failure - Instructions Referrals: Elder Campo MD [Primary Care Provider] - Disposition: - Home Medications Comprehensive Discharge Medication List: Ambulatory Orders Cyanocobalamin [Vitamin B12 -] 1,000 mcg PO DAILY 07/10/16 Cyclobenzaprine HCl [Flexeril -] 10 mg PO BID 07/10/16 Latanoprost 0.005% Eye Drops [Xalatan 0.005% Eye Drops -] 1 drop HS 07/10/16 Cholecalciferol (Vitamin D3) [Vitamin D3 -] 1,000 unit PO DAILY #30 tab Multivitamin [Poly-Vitamin] 1 each PO DAILY #30 tab.chew 08/07/16 Emtricitabine/Tenofov Alafenam [Descovy 200-25 mg Tablet] 1 each PO DAILY #30 tablet 08/14/16 Raltegravir [Isentress] 400 mg PO BID #60 tab 08/14/16 Chlorthalidone [Hygroton -] 25 mg PO DAILY #30 tablet 10/16/16 Hydralazine HCl [Apresoline -] 50 mg PO BID 10/16/16 Loratadine [Claritin -] 10 mg PO DAILY PRN #30 tablet 10/16/16 Pravastatin Sodium 10 mg PO HS 10/16/16 Sodium Chloride [Saline Nasal [place]] 1 - 2 sprays NS PRN #1 spray 10/16/16 Calcium Carbonate/Vitamin D3 [Calcium 500-Vit D3 200 Tablet] 1 each PO BID #60 tablet 10/23/16 Carbamazepine [Tegretol -] 200 mg PO BID #60 tablet 10/23/16 Vitamin B Complex 1 each PO DAILY #30 tablet 10/23/16 Clindamycin [Cleocin -] 300 mg PO TID #21 capsule 11/11/16 Quetiapine Fumarate [Seroquel -] 25 mg PO TID PRN #90 tablet 11/20/16 Valsartan [Diovan] 160 mg PO BID #60 tablet 11/20/16 Aspirin [ASA -] 81 mg PO DAILY #30 tab.chew 11/30/16
== END 2016-12-20 22:26 | disposition expired | DRG 720 ==
LOC: JER 19:04 → JERBED 21:44 → J4W 23:30 → JICU 12-20 18:22
PROVIDERS: ADMIT Internal Medicine; ATTEND Internal Medicine
PROC: 0BH17EZ Insertion of Endotracheal Airway into Trachea, Via Natural or Artificial Opening (ICD-10-PCS; principal; 2016-12-20)
PROC: 5A1935Z Respiratory Ventilation, Less than 24 Consecutive Hours (ICD-10-PCS; 2016-12-20)
PROC: 5A12012 Performance of Cardiac Output, Single, Manual (ICD-10-PCS; 2016-12-20)
PROC: 05HN33Z Insertion of Infusion Device into Left Internal Jugular Vein, Percutaneous Approach (ICD-10-PCS; 2016-12-20)
DX: A41.9 Sepsis, unspecified organism (principal); N17.9 Acute kidney failure, unspecified; E87.0 Hyperosmolality and hypernatremia; I69.354 Hemiplegia and hemiparesis following cerebral infarction affecting left non-dominant side; J44.9 Chronic obstructive pulmonary disease, unspecified; I10 Essential (primary) hypertension; E86.0 Dehydration; E78.5 Hyperlipidemia, unspecified; G40.802 Other epilepsy, not intractable, without status epilepticus; I69.391 Dysphagia following cerebral infarction; R13.19 Other dysphagia; E11.9 Type 2 diabetes mellitus without complications; K56.2 Volvulus; J96.00 Acute respiratory failure, unspecified whether with hypoxia or hypercapnia; F20.0 Paranoid schizophrenia; R62.7 Adult failure to thrive; J45.909 Unspecified asthma, uncomplicated; B19.20 Unspecified viral hepatitis C without hepatic coma; Z21 Asymptomatic human immunodeficiency virus [HIV] infection status; Z85.038 Personal history of other malignant neoplasm of large intestine; Z85.41 Personal history of malignant neoplasm of cervix uteri; Z87.891 Personal history of nicotine dependence
CPT/HCPCS: 31500; 36415; 36600; 71010-TC; 80053; 81003; 81015; 82550; 82553; 82570; 82803; 83605; 83690; 84156; 84484; 85025; 85610; 85730; 86850; 86900; 86901; 87040; 87086; 87186; 93005; 93010; 99284-25